=== PATIENT | male | born 1955 | race Caucasian/White ===

== ENCOUNTER 2017-09-26 15:52 | Observation (INO) | payer SELFPAY ==
--- NOTE | 2017-09-26 16:13 | EDPHY ---
H & P Stated Complaint: MRI/sent from M.D,. Time Seen by Provider: 09/26/17 16:11 - Personal History Current Tetanus/Diphtheria Vaccine: Yes - Medical/Surgical History Hx Asthma: No Hx Chronic Respiratory Disease: No Hx Diabetes: No Hx Cardiac Disease: No Hx Renal Disease: Yes Hx Cirrhosis: No Hx Alcoholism: No Other PMH: stasis ulcers bilat Lower ext, htn - Social History Smoking Status: Never smoked Constitutional: Initial Vital Signs Temperature (C) 36.9 C 09/26/17 16:05 Heart Rate 65 09/26/17 16:05 Respiratory Rate 16 09/26/17 16:05 Blood Pressure 119/82 H 09/26/17 16:05 O2 Sat (%) 94 09/26/17 16:05 O2 Delivery Mode Room Air Allergies/Adverse Reactions: NSAIDS (Non-Steroidal Anti-Inflamma Allergy (Mild, Verified 09/26/17 20:30) Other-Enter Comments Home Medications: Medication Instructions Recorded Lisinopril [Zestril 20 mg (*)] 20 mg PO DAILY 09/26/17 Metoprolol Tartrate [Lopressor 25 25 mg PO BID 09/26/17 mg (*)] amLODIPine BESYLATE [Norvasc 10 mg 10 mg PO DAILY 09/26/17 (*)] Medical Decision Making - Diagnostics Imaging Results: Imaging Impressions Abdomen/Pelvis CT 09/26/17 17:14 Impression: 1. Xysslara-[id number]-[id number] volume ascites with apparent omental caking. 2. Hepatic cirrhosis with a nonspecific 13 x 15 mm hypodense lesion along the ventral upper left hepatic lobe. 3. There is a 15 x 17 mm exophytic hypodense lesion off the upper pole of the right kidney. 4. Cardiomegaly with mitral annular calcification. 5. Small hiatal hernia. 6. Mild prostatomegaly, with some nonspecific scattered punctate osteosclerotic foci in the pelvis and proximal femora. Correlation with serum PSA value is suggested. 7. There is no evidence of nephroureterolithiasis or obstructive uropathy. Findings were discussed with Samy Polo MD at 18:23, on 09/26/2017. Imaging: Discussed imaging studies w/ call center nurse Radiologist ED Course/Re-evaluation: CHIEF COMPLAINT: Distended abdomen. HISTORY OF PRESENT ILLNESS: This patient is a 62 year old male arriving at the request of his primary care physician, Dr. Mazariegos, for evaluation of a swollen abdomen. The patient states "I woke up one day and I had a grandpa belly". He has noted increased distension and discomfort for over the past three weeks. He initially thought his symptoms were from weight gain due to his diet. He has had decreased appetite over the last three weeks as well, and diarrhea rather than normal bowel movements. He endorses severe cramps on occasion. The patient has history of bowel surgery as a child, but no other abdominal surgeries. He is unsure whether he is s/p appendectomy. He endorses a long history of heavy alcohol use. He denies fever, chest pain, shortness of breath, or other associated symptoms. REVIEW OF SYSTEMS: A 10 point review of systems was performed and is negative with the exception of the elements mentioned in the history of present illness. PHYSICAL EXAM: HR, BP, O2 Sat, RR. Temp noted General Appearance: Alert, well hydrated, appropriate, and non-toxic appearing. Head: Atraumatic without scalp tenderness or obvious injury Eyes: Pupils equal, round, reactive to light and accommodation, EOMI, no trauma , no injection. Ears: Clear bilaterally, no perforation, normal landmarks Nose: Atraumatic, no rhinorrhea, clear. Throat: There is no erythema or exudates, no lesions, normal tonsils, mucus membranes moist. Neck: Supple, 2+ carotid upstroke, nontender, no lymphadenopathy. Respiratory: No retractions, no distress, no wheezes, and no accessory muscle use. Lungs are clear to auscultation bilaterally. Cardiovascular: Regular rate and rhythm, no murmurs, rubs, or gallops. Bilateral carotid, radial, dorsalis pedis, and posterior tibial pulses intact. Good capillary refill all extremities. Gastrointestinal: Abdomen is significantly distended. Fluid wave present. Musculoskeletal: Normal active ROM of all extremities, atraumatic. Neurological: Alert, appropriate, and interactive. The patient has normal DTRs and non-focal cranial nerves, motor, sensory, and cerebellar exam. Skin: No rashes, good turgor, no nodules on palpation. Past medical history: Stasis ulcers in bilateral lower extremities, hypertension Past surgical history: Remote history of bowel surgery Family history: Noncontributory Social history: Works in the restaurant industry. Lives in [place]. Heavy alcohol use. DIFFERENTIAL DIAGNOSIS: The differential diagnosis for the patient's abdominal pain included but was not limited to cirrhosis, ascites, appendicitis, cholecystitis, hernias, testicular torsion, gastritis, and urinary tract infection. MEDICAL DECISION MAKIN62 year old male presents with abdominal swelling and pain onset three weeks ago. Abdomen is significantly distended on exam, fluid wave present. Plan for labs including I-stat, CBC, chemistries, liver, lipase, UA. Plan for CT abdomen/ pelvis. Reviewed laboratory studies. Creatinine elevated at 2.5. UA positive for bilirubin, proteins. 18:[address] Hughes, radiologist. CT shows ascites, peritoneal caking worrisome for malignancy, evidence of cirrhosis. Plan for admission for possible paracentesis and further workup including cytology. 18:[address] Hinkle, hospitalist. He accepts admission for ascites, cirrhosis. - Data Points Laboratory Results: Laboratory Results 09/26/17 16:20 09/26/17 16:20 09/26/17 09/26/17 09/26/17 16:30 16:27 16:20 WBC RBC Hgb POC Hgb 15.6 gm/dL gm/dL (13.7-17.5) Hct POC Hct 46 % % (40-51) MCV MCH MCHC RDW Plt Count MPV Neut % (Auto) Lymph % (Auto) [place] % (Auto) Eos % (Auto) Baso % (Auto) Nucleat RBC Rel Count Absolute Neuts (auto) Absolute Lymphs (auto) Absolute Monos (auto) Absolute Eos (auto) Absolute Basos (auto) Absolute Nucleated RBC Immature Gran % Immature Gran # PT INR APTT POC Sodium 140 mEq/L mEq/L (135-145) Sodium POC Potassium 4.2 mEq/L mEq/L (3.3-5.0) Potassium POC Chloride 109 mEq/L mEq/L (97-110) Chloride Carbon Dioxide Anion Gap POC BUN 33 mg/dL H mg/dL (7-23) BUN Creatinine POC Creatinine 2.7 mg/dL H mg/dL (0.7-1.3) Estimated GFR Glucose POC Glucose 96 mg/dL mg/dL (70-100) Calcium Total Bilirubin Conjugated Bilirubin Unconjugated Bilirubin AST ALT Alkaline Phosphatase Total Protein Albumin Lipase Carcinoembryonic Ag Free PSA Pending Total PSA Pending Urine Color HUSSAIN Urine Appearance MODERATELY TURBID Urine pH 5.0 (5.0-7.5) Ur Specific [place] 1.023 (1.002-1.030) Urine Protein 1+ H (NEGATIVE) Urine Ketones NEGATIVE (NEGATIVE) Urine Blood 1+ H (NEGATIVE) Urine Nitrate NEGATIVE (NEGATIVE) Urine Bilirubin POSITIVE H (NEGATIVE) Urine Urobilinogen 2.0 EU H EU (0.2-1.0) Ur Leukocyte Esterase NEGATIVE (NEGATIVE) Urine RBC 15-25 /hpf H /hpf (0-3) Urine WBC 3-5 /hpf H /hpf (0-3) Ur Epithelial Cells TRACE /lpf /lpf (NONE-1+) Hyaline Casts 5-15 /lpf /lpf (0-1) Urine Mucus 2+ /lpf H /lpf (NONE-1+) Urine Glucose NEGATIVE (NEGATIVE) 09/26/17 09/26/17 09/26/17 16:20 16:20 16:20 WBC RBC Hgb POC Hgb Hct POC Hct MCV MCH MCHC RDW Plt Count MPV Neut % (Auto) Lymph % (Auto) [place] % (Auto) Eos % (Auto) Baso % (Auto) Nucleat RBC Rel Count Absolute Neuts (auto) Absolute Lymphs (auto) Absolute Monos (auto) Absolute Eos (auto) Absolute Basos (auto) Absolute Nucleated RBC Immature Gran % Immature Gran # PT 14.2 SEC SEC (12.0-15.0) INR 1.08 (0.83-1.16) APTT 27.9 SEC SEC (23.0-38.0) POC Sodium Sodium 138 mEq/L mEq/L (135-145) POC Potassium Potassium 4.5 mEq/L mEq/L (3.3-5.0) POC Chloride Chloride 107 mEq/L mEq/L (97-110) Carbon Dioxide 17 mEq/l L mEq/l (22-31) Anion Gap 14 mEq/L mEq/L (8-16) POC BUN BUN 31 mg/dL H mg/dL (7-23) Creatinine 2.5 mg/dL H mg/dL (0.7-1.3) POC Creatinine Estimated GFR 26 Glucose 90 mg/dL mg/dL (70-100) POC Glucose Calcium 9.7 mg/dL mg/dL (8.5-10.4) Total Bilirubin 0.6 mg/dL mg/dL (0.1-1.4) Conjugated Bilirubin 0.4 mg/dL mg/dL (0.0-0.5) Unconjugated Bilirubin 0.2 mg/dL mg/dL (0.0-1.1) AST 14 IU/L L IU/L (17-59) ALT 29 IU/L IU/L (21-72) Alkaline Phosphatase 54 IU/L IU/L (38-126) Total Protein 6.1 g/dL L g/dL (6.3-8.2) Albumin 3.5 g/dL g/dL (3.5-5.0) Lipase 594 IU/L H IU/L (23-300) Carcinoembryonic Ag 188.00 ng/mL H ng/mL (0.00-3.00) Free PSA Total PSA Urine Color Urine Appearance Urine pH Ur Specific [place] Urine Protein Urine Ketones Urine Blood Urine Nitrate Urine Bilirubin Urine Urobilinogen Ur Leukocyte Esterase Urine RBC Urine WBC Ur Epithelial Cells Hyaline Casts Urine Mucus Urine Glucose 09/26/17 16:20 WBC 7.75 10^3/uL 10^3/uL (3.80-9.50) RBC 4.64 10^6/uL 10^6/uL (4.40-6.38) Hgb 14.6 g/dL g/dL (13.7-17.5) POC Hgb Hct 44.3 % % (40.0-51.0) POC Hct MCV 95.5 fL fL (81.5-99.8) MCH 31.5 pg pg (27.9-34.1) MCHC 33.0 g/dL g/dL (32.4-36.7) RDW 12.9 % % (11.5-15.2) Plt Count 339 10^3/uL 10^3/uL (150-400) MPV 10.7 fL fL (8.7-11.7) Neut % (Auto) 76.5 % H % (39.3-74.2) Lymph % (Auto) 10.5 % L % (15.0-45.0) [place] % (Auto) 11.7 % % (4.5-13.0) Eos % (Auto) 0.5 % L % (0.6-7.6) Baso % (Auto) 0.5 % % (0.3-1.7) Nucleat RBC Rel Count 0.0 % % (0.0-0.2) Absolute Neuts (auto) 5.93 10^3/uL 10^3/uL (1.70-6.50) Absolute Lymphs (auto) 0.81 10^3/uL L 10^3/uL (1.00-3.00) Absolute Monos (auto) 0.91 10^3/uL H 10^3/uL (0.30-0.80) Absolute Eos (auto) 0.04 10^3/uL 10^3/uL (0.03-0.40) Absolute Basos (auto) 0.04 10^3/uL 10^3/uL (0.02-0.10) Absolute Nucleated RBC 0.00 10^3/uL 10^3/uL (0-0.01) Immature Gran % 0.3 % % (0.0-1.1) Immature Gran # 0.02 10^3/uL 10^3/uL (0.00-0.10) PT INR APTT POC Sodium Sodium POC Potassium Potassium POC Chloride Chloride Carbon Dioxide Anion Gap POC BUN BUN Creatinine POC Creatinine Estimated GFR Glucose POC Glucose Calcium Total Bilirubin Conjugated Bilirubin Unconjugated Bilirubin AST ALT Alkaline Phosphatase Total Protein Albumin Lipase Carcinoembryonic Ag Free PSA Total PSA Urine Color Urine Appearance Urine pH Ur Specific [place] Urine Protein Urine Ketones Urine Blood Urine Nitrate Urine Bilirubin Urine Urobilinogen Ur Leukocyte Esterase Urine RBC Urine WBC Ur Epithelial Cells Hyaline Casts Urine Mucus Urine Glucose Medications Given: Discontinued Medications Sodium Chloride (Ns) 1,000 mls @ 0 mls/hr IV EDNOW ONE; Wide Open PRN Reason: Protocol Stop: 09/26/17 16:23 Last Admin: 09/26/17 18:55 Dose: Not Given Point of Care Test Results: Chemistry 09/26/17 16:27 POC Sodium 140 mEq/L mEq/L (135-145) POC Potassium 4.2 mEq/L mEq/L (3.3-5.0) POC Chloride 109 mEq/L mEq/L (97-110) POC BUN 33 mg/dL H mg/dL (7-23) POC Creatinine 2.7 mg/dL H mg/dL (0.7-1.3) POC Glucose 96 mg/dL mg/dL (70-100) ISTAT H&H 09/26/17 16:27 POC Hgb 15.6 gm/dL gm/dL (13.7-17.5) POC Hct 46 % % (40-51) Departure - Departure Disposition: [facility] Inpatient Acute Clinical Impression: Ascites Qualifiers: Ascites type: other type Qualified Code(s): R18.8 - Other ascites Cirrhosis Qualifiers: Hepatic cirrhosis type: unspecified hepatic cirrhosis Ascites presence: with ascites Qualified Code(s): K74.60 - Unspecified cirrhosis of liver Condition: Good
[2017-09-26] MEDS ORDERED: NS 1,000 ML IV ONE (16:22)
[2017-09-26 16:47] LABS: INR 1.08 (0.83-1.16); PROTIME(PATIENT) 14.2 SEC (12.0-15.0)
[2017-09-26 16:48] LABS: PLATELET COUNT 339 10^3/uL (150-400)
[2017-09-26] MEDS ORDERED: PROMETHAZINE HCL 25 MG/ML INJ IVP PRN (19:31)
[2017-09-26] MEDS ORDERED: ONDANSETRON 4 MG/2 ML VIAL IVP PRN (19:31)
--- NOTE | 2017-09-26 20:08 | GHP ---
[f rep st] HISTORY AND PHYSICAL DATE OF ADMISSION: 09/26/2017 CHIEF COMPLAINT: Abdominal swelling and cramps. HISTORY OF PRESENT ILLNESS: This is a 62-year-old male with history of hypertension and lower extrem ity stasis ulcers who was sent to the emergency department by his primary care provider, __ at [place] for evaluation of abdominal swelling. Patient tells that over the past 3 weeks he peres d increasing crampy abdominal pain and swelling. It has been associated with some weight loss. His appetite has been decreased. He has had some nausea but no vomiting. He denies any change in bowel habits. He has never had a colonoscopy. He does have a history of some alcohol abuse where he had b een drinking 5 or more shots whiskey per day for a couple years, but has not been drinking as much ov er the past year. PAST MEDICAL HISTORY: Hypertension and stasis ulcers. PAST SURGICAL HISTORY: Laparotomy as a child for some kind of bowel infection. SOCIAL HISTORY: He lives in [place]. He drinks alcohol occasionally now, but does have a history of alcohol abuse a few years ago. He denies any tobacco use. He uses marijuana. FAMILY HISTORY: Reviewed and significant for diabetes in his brother. REVIEW OF SYSTEMS: Comprehensive 10-point review of systems was done and is negative, except as ment ioned in the HPI. PHYSICAL EXAM: VITAL SIGNS: Blood pressure 134/91, pulse 63, respiratory rate 16, O2 saturation 97% on room air. Temperature afebrile. GENERAL: No acute distress. HEAD: Normocephalic, atraumatic. There is some temporal wasting. EYES: PERRLA. Sclerae anicteric. NECK: Supple. No lymphadenopathy. CARDIOVASCULAR: S1, S2. No murmurs, rubs, clicks, or gallops. No JVD. No lower extremity edema. PULMONARY: Mild expiratory wheeze. No respiratory distress. No rales or rhonchi. Abdomen is signi ficantly distended with bulging flanks. It is nontender. There is no guarding or rebound tenderness . Bowel sounds are diminished. SKIN: Clear. No rashes. No jaundice. NEURO: Cranial nerves 2-12 grossly intact. No focal motor or sensory deficits. DIAGNOSTICS: WBC 7.7, hemoglobin 14.6, hematocrit 44.3, platelets 339. INR 1.08. Sodium 138, potass ium 4.5, chloride 107, CO2 17, BUN 31, creatinin 2.5, glucose 90. AST 14, ALT 29, total protein low at 6.1, albumin 3.5, lipase 594. UA negative leukocyte esterase, 1+ protein, 1+ blood, 5-[address] of the abdomen and pelvis was reviewed showing hsonxwxl-[id number]-[id number] volume ascites with apparent omen selena caking, hepatic cirrhosis, a 13 x 15 mm hypodense lesion in the left upper lobe. There is also a 14 x 17 exophytic hyperdense lesion in the upper pole of the right kidney. See report for full deta ils. ASSESSMENT AND PLAN: This is a 62-year-old male presenting with crampy abdominal pain, anorexia and weight loss, found to have: 1. Dkcfdush-bo-uhvnx volume of ascites of unclear etiology. Worrisome for malignancy given the omen selena caking. PLAN: The patient will be placed on observation for further workup and evaluation. We will ask interventional Radiology to perform a paracentesis. Fluid should be sent for cell counts an d cytology. We will also order a PSA, alpha fetoprotein, CEA. 2. Elevated creatinine with unclear baseline with CT scan showing 15 x 17 mm exophytic hyperdense le linda in the upper pole of right kidney. PLAN: We will avoid nephrotoxins and obtain urine lytes. I maging to be discussed with Interventional Radiology and possibly Oncology to see if the lesion would be amenable to biopsy or to see if this would be worthwhile. 3. History of hypertension. PLAN: Will hold home dose of lisinopril and treat with metoprolol and amlodipine as indicated. 4. The patient requests to be full code status. /[id number]/MODL
[2017-09-27 05:18] LABS: PLATELET COUNT 283 10^3/uL (150-400)
[2017-09-27] MEDS ORDERED: LIDOCAINE 1% 300 MG/30 ML SDV ONE (07:47)
[2017-09-27] MEDS ORDERED: ENOXAPARIN 40 MG/0.4 ML SYR SC SCH (09:00)
[2017-09-27] MEDS ORDERED: ALBUMIN 25% 200 ML IV ONE (10:59)
--- NOTE | 2017-09-27 12:00 | ASMTCAGE ---
CAGE Do you feel you ought to Answers: Yes cut down on your drinking or drug use? Do people annoy you by Answers: No criticizing your drinking or drug use? Do you feel guilty about Answers: No your drinking or drug use? 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 Date Signed: 09/27/2017 11:59 AM Electronically Signed By:VALENTE Sebastian
--- NOTE | 2017-09-27 12:03 | ASMTCASEMG ---
Living Arrangements What is your living Answers: Alone arrangement? Who do you live with? Type Of Residence What kind of residence do Answers: House you live in? Discharge Plan Comments Coordination Status Comments Notes: Pt is a 62 y/o man admitted for abdominal swelling and cramps. CM provided ETOH resources. CM completed CAGE. Pt reports that he has cut down significantly on his ETOH because it started effecting his daily mood. Pt reports that he has supports in his life. Pt reports that he is currently uninsured. Pt reports that he makes too much money for Medicaid. Pt reports that financial counseling has already been by to visit. Pt feels that he can ambulate safely without any support. No other needs identified at this time. CM available for changes. Plan: Independent Date Signed: 09/27/2017 12:03 PM Electronically Signed By:VALENTE Sebastian
--- NOTE | 2017-09-27 12:33 | HOSPPROG ---
Hospitalist Progress Note Assessment/Plan: DIAGNOSES: * painful abdominal ascites, etiology being assessed but suspect malignant and/ or portal hypertension induced * The volume of his ascites is likely more consistent with at least some contribution from portal hypertension from cirrhosis but CT scan findings are concerning (though without contrast more difficult to interpret). * cirrhosis of liver, presumably due to alcohol but other etiologies need to be assessed * Should be assessed for viral illness * acute renal failure presumably hemodynamic etiology * Some notable improvement overnight with conservative management * Continue at this time with hydration which will may be somewhat limited by his ascites, as well as withholding SALOME I * metabolic acidosis likely secondary to renal failure * findings on CT scan suggestive of possible metastatic disease with "omental caking", hypodensity in the right lobe of liver, and exophytic solid lesion on the right kidney; CEA markedly elevated * The overall picture is concerning but unclear. The liver lesion is a nonspecific single hypodense lesion without any complex findings. The renal lesion is poorly defined without contrast but is solid without cystic component. The omental caking type abnormality is somewhat difficult as well without contrast. * metastatic prostate cancer also suspected with enlargement of the gland and some sclerotic skeletal lesions in the pelvis and spine on CT A PSA should be very helpful to confirm what is likely prostatic cancer if it is highly elevated. However the other findings would not be consistent with metastatic prostate disease very likely. At this point fluid is removed from his belly and will need to see if there are any abnormal cytology findings there. At the moment I would favor waiting for cytology which hopefully would have this Monday, and try to improve his renal function to see if we can get a contrasted CT for better definition of the abnormalities. The normal AFP and the appearance of the lesion in the right lobe of the liver are not very consistent with hepatoma. The renal lesion is hard to interpret based on the current imaging but is suspicious. The a mental caking also would be potentially easier to interpret with contrast imaging. In terms of biopsy the lesion on the kidney looks to me like we could get to it easily enough with a needle. The omental disease would need to be approached laparoscopically if biopsy were desired. I will review with on-call oncologist to get their opinion. PLANS: * He has now had a large volume paracentesis with greater than 5 L removed; sent for diagnostic studies * Will give some albumin for vascular volume replacement after that, may need further supplements depending on renal function and pressures * Will check hepatitis B and C markers At this point I recommended to the patient that he continue inpatient care here in the hospital primarily to monitor renal function, blood pressure, reaccumulation of ascites that we can determine safely how to manage that and keep his kidneys out of trouble and keep him comfortable. I have also reviewed all of the above with him in great detail. I reviewed that we should wait for the cytology results to come back, wait for his PSA to come back, and then proceed with obtaining further diagnostic studies. If he has abnormal cells suspicious for malignancy in this cytology of his peritoneal fluid, it may be that a laparoscopic exploration and biopsy of the omental disease or other disease would be very helpful. Otherwise a CT scan-guided biopsy of the kidney might be helpful for the right renal mass. There may be other findings that tell us to go a different way. After all this discussion the patient disclosed to me that he has very significant financial concerns. At age 62 he is currently making too much money for Medicaid and not eligible for Medicare but has not bought any insurance so he is uninsured. He has great concerns about his financial situation. 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 He has other responsibilities and obligations that he feels he needs to attend to. He is not willing at this time to stay in the hospital further and will be leaving regardless of the overall situation at this time. He understands that my recommendation from a medical standpoint is that he not leave the hospital. He understands the reasons for my recommendations. Therefore my recommendation at this time to him is that he stick with a low-salt diet low fluid intake, borrow a scale from his daughter, obtained a blood pressure cuff from 1 of his friends, and keep very careful track of his abdominal distension and symptoms, any leg edema, blood pressures, and weight on a daily basis. I have told them that we when aim for normal to slightly high blood pressures but avoid anything at all low. I have also strongly recommended that he follow up tomorrow in clinic with Dr. Mazariegos his primary care physician. The patient understands and agrees to all the lows recommendations. I have informed him that will not have cytology back until 2 days from now or the following Monday, and the PSA will take a few more days as well. He will need follow-up in reassessment of his overall situation at that time with a repeat of his creatinine to determine whether it allows for any contrasted CT studies as well. I have also spoken did just now by [address] 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 The right renal lesion is easily noted, the findings are less detail them would be found with contrast. The lesion in the right lobe of the liver is a simple appearing cystic lesion. It is a single lesion. The ascites is obvious. The omental disease mentioned by the radiologist is difficult to visualize without contrast. The prostatic and skeletal findings as detailed the radiologist are very easy to see and do suggest possible metastatic prostate disease I reviewed the images from the ultrasound studies for paracentesis today no additional new findings but a very limited study for the procedure The total time at bedside for this visit with me in the patient today was greater than 75 min, the great majority of that spent in reviewing all of his test findings, my interpretation with those findings mean, his differential diagnosis, the prognosis of his acute and his other medical diagnoses, potential for treatments and complications. We also talked about financial concerns a variety of other issues related to managing his medical problems as above. In addition to this time I had a [address] call with Dr[address] Mazariegos to review all of the above in to arrange appropriate follow-up. I will also be reviewing his case today with Dr. Britany Dean of Oncology after this note. Objective: Vital Signs Temp Pulse Resp BP Pulse Ox 37.2 C 67 16 121/66 H 95 09/27/17 11:44 09/27/17 11:44 09/27/17 11:44 09/27/17 11:44 09/27/17 11:44 Laboratory Results 09/27/17 04:55 09/27/17 04:55 09/26/17 09/27/17 09/28/17 06:59 06:59 06:59 Output Total 5400 Balance -5400 PT 14.2 SEC (12.0-15.0) 09/26/17 16:20 INR 1.08 (0.83-1.16) 09/26/17 16:20 ICD10 Worksheet Patient Problems: Problems Problem Status Onset Ascites Acute Cirrhosis Acute
--- NOTE | 2017-09-27 14:35 | PDDCSUM ---
Discharge Summary Discharge Summary: DISCHARGE DIAGNOSES: * new diagnosis of large volume ascites, suspect malignant but patient does have ascites as well; status post large volume paracentesis * acute renal failure, suspect hemodynamic etiology * CT-scan suggestion of possible metastatic disease to the omentum * small mass on the superior pole of right kidney, solid * small hypodense lesion in the right lobe of the liver appears most likely to be a simple cyst; AFP is undetectable * cirrhosis of the liver is noted on CT scan, patient with history of some alcohol use heavy in the past * enlargement of prostate along with several sclerotic bone lesions in the pelvis spine and femurs is incidentally noted on CT scan abdomen * chronic hypertension PROCEDURES: CT scan of abdomen, done without contrast due to acute renal failure HOSPITAL COURSE SUMMARY: This patient was sent to the hospital by his primary care physician after presenting with painful abdominal distension that has been gradually coming on over period of weeks. He is found have large volume ascites, acute renal failure with creatinine 2.5, with suspected pre renal hemodynamic etiology, as well as CT scan findings of suspected omental metastatic disease, small mass on the superior pole right kidney, enlarged prostate, sclerotic lesions in the lumbar spine, pelvic bones, and femurs, and evidence of cirrhosis by CT scan appearance of the liver. Liver function in the way of albumin was okay and his bilirubin was in good range. Patient does have a history of heavy alcohol use. The patient's lisinopril was discontinued and overnight his creatinine improved to 2.0. He is making good urine. A large volume paracentesis was done yelling 5.4 L of yellow fluid, with low number of neutrophils, a lymphocyte predominance , and a low albumin gradient. This is a largely transudative fluid with some red blood cells in it. Suspicion for malignancy is high particularly in the absence of leg edema a and absence of demonstrated hepatic dysfunction per se. Cytology studies are pending. Differential diagnosis for the cause of the ascites is broad. It is possible that there is some type of malignancy such as a breast or otherwise. There could be some type of immune disease though has no fevers or anemia of significance and really no symptoms are examination findings to suggest such. Within normal alpha-fetoprotein and a single small hypodense could a simple appearing lesion in the liver, this does not seem like a hepatoma. There is a mass on the superior pole the right kidney, however this is small, not complex in appearance, and at the moment there isn't much else to cysts suggest metastatic disease from this lesion. At the moment it seems appropriate to wait for cytology studies of the abdominal fluid and make decisions on how to proceed next from there. In terms of management of his ascites and renal disease it is recommended that we go with a low fluid and salt intake, with hold his lisinopril, and depending on how his blood pressures and renal function go consider diuretics. However it may be that controlling the ascites will come down to identifying its cause and treating the cause directly. The patient did receive some albumin here to help with intravascular volume. Is recommended to the patient at this time that he stay in the hospital for ongoing management of the renal function and ascites at this time until we have both stabilized, however due to financial and other reasons he is unwilling to stay in the hospital. I have therefore spoken with his primary care physician in [place] for the patient have follow-up with him the primary care tomorrow and probably the following day as well. It may be a good idea for him to be seen in the Oncology Clinic next week when the PSA and cytologies will be back with certainty. Is very clear to the patient why it is recommended that he stay here with the potential complications of not having this managed here are. The patient has had all of the above described to him in clear detail and all of his questions answered. PENDING TEST RESULTS: Cytology studies from paracentesis PSA MEDICATION CHANGES: Discontinuation of lisinopril FOLLOW-UP PLAN: He will see Dr. Mazariegos tomorrow > 35 min spent at bedside today with patient
[2017-09-27 16:21] VITALS: BP 141/86
[2017-09-27] MEDS ORDERED: METOPROLOL TARTRATE 25 MG TAB PO SCH (21:00)
== END 2017-09-27 15:07 | disposition home or self-care (01) ==
LOC: F3E 19:46
PROVIDERS: ADMIT Family Medicine; ATTEND Family Medicine
PROC: 0W9F30Z Drainage of Abdominal Wall with Drainage Device, Percutaneous Approach (ICD-10-PCS; principal; 2017-09-26)
DX: R18.0 Malignant ascites (principal); N17.9 Acute kidney failure, unspecified; D41.01 Neoplasm of uncertain behavior of right kidney; K74.60 Unspecified cirrhosis of liver; N40.0 Benign prostatic hyperplasia without lower urinary tract symptoms; I10 Essential (primary) hypertension
CPT/HCPCS: 82435-PO; 82565-PO; 82947-PO; 84132-PO; 84154-90; 84295-PO; 84520-PO; 85014-PO; 97161-GP; 97165-GO; G0378; J1650; P9047

== ENCOUNTER 2017-11-03 07:17 | Day surgery (SDC) | payer MEDICAID ==
[~2017-11-03 07:17] MED LIST: oxyCODONE IR 5 MG TAB PO SCH
[2017-11-03] MEDS ORDERED: EPINEPHrine 1 MG/ML INJ ONE (07:39)
[2017-11-03] MEDS ORDERED: NS 500 ML IV ONE (07:39)
[2017-11-03] MEDS ORDERED: ceFAZolin 2 GM/DEXTROSE 100 ML IV ONE (07:39)
[2017-11-03] MEDS ORDERED: BUPIVACAINE 0.25% 30 ML SDV ONE (07:39)
--- NOTE | 2017-11-03 07:51 | PDHPUP ---
History & Physical Update H&P update statement: This history and physical update is based on an assessment of the patient which was completed after admission or registration (within 24 hours), but prior to the surgery/procedure. H&P update: H&P reviewed & patient examined, no change in patient's condition since H&P completed
[2017-11-03] MEDS ORDERED: MIDAZOLAM 2 MG/2 ML VIAL IVP ONE (08:03)
--- NOTE | 2017-11-03 08:03 | PDANEPAE ---
ANE History of Present Illness h/o colorectal cancer p/f port placement ANE Past Medical History - Cardiovascular History Hx Hypertension: Yes Hx Arrhythmias: No Hx Chest Pain: No Hx Coronary Artery / Peripheral Vascular Disease: No Hx CHF / Valvular Disease: No Hx Palpitations: No - Pulmonary History Hx COPD: No Hx Asthma/Reactive Airway Disease: No Hx Recent Upper Respiratory Infection: No Hx Oxygen in Use at Home: No Hx Sleep Apnea: No Sleep Apnea Screening Result - Last Documented: Positive - Neurologic History Hx Cerebrovascular Accident: No Hx Seizures: No Hx Dementia: No - Endocrine History Hx Diabetes: No Obesity: no - Renal History Hx Renal Disorders: Yes Renal History Comment: KIDNEY DISEASE - FROM TAKING NSAIDS FOR PAIN - Liver History Hx Hepatic Disorders: Yes Hepatic History Comment: MILD CIRRHOSIS - Neurological & Psychiatric Hx Hx Neurological and Psychiatric Disorders: No - Cancer History Hx Cancer: Yes Cancer History Comment: METASTATIC COLON CA - Congenital Disorder History Hx Congenital Disorders: No - GI History Hx Gastrointestinal Disorders: No - Other Health History Other Health History: NEG - Chronic Pain History Chronic Pain: No - Surgical History Prior Surgeries: ABD SURGERY CHILD. COLLARBONE ORIF. LEG ULCERS. COLONOSCOPY ANE Review of Systems Review of systems is: negative Review of Systems: - Exercise capacity METS (RN): 4 METS ANE Patient History - Allergies Allergies/Adverse Reactions: NSAIDS (Non-Steroidal Anti-Inflamma Allergy (Mild, Verified 09/26/17 20:30) Other-Enter Comments - Home Medications Home medications: home medication list seen and reviewed Home Medications: Metoprolol Tartrate [Lopressor 25 mg (*)] 25 mg PO BID 09/26/17 [Last Taken X2 DOSES] amLODIPine BESYLATE [Norvasc 10 mg (*)] 10 mg PO DAILY 09/26/17 [Last Taken ] - Anes Hx Anes Hx: no prior problems - Smoking Hx Smoking Status: Never smoked - Family Anes Hx Family Hx Anesthesia Complications: NEG ANE Labs/Vital Signs - Vital Signs Height: 177.8 cm Weight: 88.451 kg ANE Physical Exam - Airway Neck exam: FROM Mallampati Score: Class 2 Mouth exam: poor dentition - Pulmonary Pulmonary: no respiratory distress - Cardiovascular Cardiovascular: regular rate and rhythym - ASA Status ASA Status: III ANE Anesthesia Plan Anesthesia Plan: GA with mask
[2017-11-03] MEDS ORDERED: fentaNYL 100 MCG/2 ML INJ ONE (08:08)
[2017-11-03] MEDS ORDERED: PROPOFOL 200 MG/20 ML VIAL ONE ×2 (08:09)
[2017-11-03] MEDS ORDERED: MIDAZOLAM 2 MG/2 ML VIAL ONE (08:11)
[2017-11-03] MEDS ORDERED: LIDOCAINE 2% 2 ML INJ ONE ×2 (08:13)
[2017-11-03] MEDS ORDERED: ONDANSETRON 4 MG/2 ML VIAL IVP PRN (08:50)
[2017-11-03] MEDS ORDERED: ACETAMINOPHEN 500 MG TAB PO PRN (08:50)
[2017-11-03] MEDS ORDERED: NS 500 ML IV PRN (08:50)
[2017-11-03] MEDS ORDERED: NALOXONE HCL 0.4 MG/ML INJ IVP PRN (08:50)
[2017-11-03] MEDS ORDERED: HYDROmorphONE/DILAUDID 1 MG/ML INJ IVP PRN (08:50)
[2017-11-03] MEDS ORDERED: ALBUTEROL 3 ML DEYVIAL IH PRN (08:50)
[2017-11-03] MEDS ORDERED: oxyCODONE IR 5 MG TAB PO PRN (08:50)
[2017-11-03] MEDS ORDERED: HYDROCODONE/APAP 5/325 TAB PO PRN (08:50)
[2017-11-03] MEDS ORDERED: fentaNYL 100 MCG/2 ML INJ IVP PRN (08:50)
--- NOTE | 2017-11-03 08:50 | POSTANESTH ---
Post Anesthetic Evaluation Cardiovascular Status: Normal, Stable Respiratory Status: Normal, Stable Level of Consciousness/Mental Status: Can Participate in Eval Pain Control: Adequate, Prn Tx Ordered Nausea/Vomiting Control: Adequate, Prn Tx Ordered Complications Possibly Related to Anesthesia: None Noted
--- NOTE | 2017-11-03 09:11 | POSTOPPROG ---
Post Op Note Date of Operation: 11/03/17 Surgeon: Ramses Langston Anesthesiologist: Demetria Anesthesia: IV Sedation Pre-op Diagnosis: Colon cancer Post-op Diagnosis: same Procedure: Us guided R IJ port placemet with intra-op fluoro Findings: Cath tip at AC jxn Inf/Abcess present in the surg proc area at time of surgery?: No EBL: Minimal
--- NOTE | 2017-11-03 09:53 | GOP ---
[f rep st] OPERATIVE REPORT DATE OF OPERATION: 11/03/2017 SURGEON: Ramses Langston MD INTENSIVE CARE UNIT REGISTERED NURSE: None. ANESTHESIA: Local with MAC. ANESTHESIOLOGIST: Dr. Augustin. PREOPERATIVE DIAGNOSIS: Metastatic colon cancer. POSTOPERATIVE DIAGNOSIS: Metastatic colon cancer. PROCEDURE PERFORMED: Ultrasound-guided right internal jugular PowerPort placement with intraoperativ e fluoroscopy. FINDINGS: Successful cannulation and placement of slim power port with tip at the atrial caval junct ion. SPECIMENS: None. ESTIMATED BLOOD LOSS: 5 cc. DESCRIPTION OF PROCEDURE: The patient was greeted in the preoperative suite. Once again, risks, gisell efits, and alternatives were discussed. Consent was signed. He was then brought back to the operati ve suite, placed on the OR table in supine position. After all anesthesia machines including SCDs we re on and functioning, [employer] time-out was performed. After successful sedation, the patient's right neck was prepped and draped in typical sterile fashion. Using the sterile ultras ound, I successfully identified the internal jugular vein and cannulated it with a single stick. I t hen threaded my guidewire over which my peel-away sheath was successfully placed under fluoro. Once this was done, I created a pocket approximately 2 finger breaths below the patient's clavicle on the right side. I made a pocket inferiorly and successfully tunneled the catheter from the pocket to the stick site and successfully fed it into the peel-away sheath. Using fluoroscopy I successfully size d it with the tip at the atrial caval junction. The catheter itself was then attached to the port pr oper. The port was attached to the underlying chest wall with an interrupted Prolene stitch. The gillespie bcutaneous tissue was closed with interrupted 3-0 Vicryl and the skin with Monocryl. Dermabond was t hen placed. The patient was then gently awoken and taken to the PACU in satisfactory condition. I d id use 0.25% Marcaine with epinephrine throughout the procedure to create a field block in all operat octavio areas. DRAINS: None. COUNTS: All counts were reported as correct x2. /[id number]/MODL
[2017-11-03 11:28] VITALS: BP 114/68
== END 2017-11-03 11:27 | disposition home or self-care (01) ==
LOC: FSGY 07:17
PROVIDERS: ATTEND Surgery
PROC: 02HV33Z Insertion of Infusion Device into Superior Vena Cava, Percutaneous Approach (ICD-10-PCS; principal; 2017-11-03 08:30)
PROC: 0JH60XZ Insertion of Tunneled Vascular Access Device into Chest Subcutaneous Tissue and Fascia, Open Approach (ICD-10-PCS; principal; 2017-11-03 08:30)
DX: C19 Malignant neoplasm of rectosigmoid junction (principal); I10 Essential (primary) hypertension
CPT/HCPCS: C1788; J0171; J0690; J1642; J2250; J2704; J3010

== ENCOUNTER 2017-12-16 12:50 | Inpatient (IN) | payer MEDICAID ==
--- NOTE | 2017-12-16 13:41 | EDPHY ---
H & P Stated Complaint: abdominal pain/N/D dehydration for a few days Time Seen by Provider: 12/16/17 13:41 - Medical/Surgical History Hx Asthma: No Hx Chronic Respiratory Disease: No Hx Diabetes: No Hx Cardiac Disease: Yes Hx Renal Disease: Yes Hx Cirrhosis: No Hx Alcoholism: No Hx HIV/AIDS: No Hx Splenectomy or Spleen Trauma: No Other PMH: stasis ulcers bilat Lower ext, htn, colon CA - Social History Smoking Status: Never smoked Constitutional: Initial Vital Signs Temperature (C) 36.7 C 12/16/17 12:58 Heart Rate 77 12/16/17 12:58 Respiratory Rate 18 12/16/17 12:58 Blood Pressure 140/86 H 12/16/17 12:58 O2 Sat (%) 97 12/16/17 12:58 O2 Delivery Mode Room Air Allergies/Adverse Reactions: NSAIDS (Non-Steroidal Anti-Inflamma Allergy (Mild, Verified 12/16/17 12:57) Other-Enter Comments Home Medications: Medication Instructions Recorded Metoprolol Tartrate [Lopressor 25 25 mg PO BID 09/26/17 mg (*)] amLODIPine BESYLATE [Norvasc 10 mg 10 mg PO DAILY 09/26/17 (*)] Medical Decision Making - Diagnostics Imaging Results: Imaging Impressions Abdomen/Pelvis CT 12/16/17 14:27 Impression: 1. Moderate omental caking once again identified compatible with metastatic disease. 2. Moderate thickening of mid to distal ileum with hazy infiltration of the associated mesentery. Consider inflammatory or infectious etiology versus less likely ischemic change. 3. Resolved ascites. 4. Small liver cysts suspected. Findings discussed with Dr. Rod Hoang at 15:29 hour, 12/16/2017. ED Course/Re-evaluation: CHIEF COMPLAINT: Abdominal pain, nausea, diarrhea HISTORY OF PRESENT ILLNESS: The patient is a 62 y/o male with a history of metastatic colon cancer complaining of abdominal pain, nausea, diarrhea feeling dehydrated for several days. The patient is followed by Dr. Bridges, oncologist, for the metastatic colon cancer. He receives chemotherapy every 2 weeks and last received it 1.5 weeks ago. He normally feels fine after the chemotherapy, but after receiving his last treatment, he began to have worsening abdominal pain, diarrhea, a decreased appetite, and nausea; he denies vomiting. Due to the diarrhea, he became dehydrated and had a syncopal episode. As his symptoms are not improving , he decided to present to the emergency department today. He denies taking any medications for his symptoms; although he does have an anti-nausea medication at home. No headache, chest pain, shortness of breath, numbness, paresthesias, fevers. REVIEW OF SYSTEMS: A comprehensive 10 system review of systems is otherwise negative aside from elements mentioned in the history of present illness and medical decision making. PHYSICAL EXAM: HR, BP, O2 Sat, RR. Temp noted General Appearance: Alert, well hydrated, appropriate, and non-toxic appearing. Head: Atraumatic without scalp tenderness or obvious injury Eyes: Pupils equal, round, reactive to light and accommodation, EOMI, no trauma , no injection. Ears: Clear bilaterally, no perforation, normal landmarks Nose: Atraumatic, no rhinorrhea, clear. Throat: There is no erythema or exudates, no lesions, normal tonsils, mucus membranes moist. Neck: Supple, nontender, no lymphadenopathy. Respiratory: No retractions, no distress, no wheezes, and no accessory muscle use. Lungs are clear to auscultation bilaterally. Cardiovascular: Regular rate and rhythm, no murmurs, rubs, or gallops. Bilateral carotid, radial, dorsalis pedis, and posterior tibial pulses intact. Good capillary refill all extremities. Gastrointestinal: Diffuse abdominal tenderness with distension. Abdomen is soft , no masses, no rebound, no guarding, no peritoneal signs. Musculoskeletal: Normal active ROM of all extremities, atraumatic. Neurological: Alert, appropriate, and interactive. The patient has normal DTRs and non-focal cranial nerves, motor, sensory, and cerebellar exam. Skin: No rashes, good turgor, no nodules on palpation. Past medical history: Colon cancer (on chemotherapy), stasis ulcers of bilateral lower extremities, hypertension Past surgical history: Denies Family history: Denies Social history: Lives in [place], daughter at bedside, retired DIAGNOSTICS/PROCEDURES/CRITICAL CARE TIME: Abdominopelvic CT: Moderate omental caking once again identified compatible with metastatic disease. Small liver cysts suspected. DIFFERENTIAL DIAGNOSIS: The differential diagnosis for the patient's abdominal pain included but was not limited to colon cancer, dehydration, appendicitis, cholecystitis, hernias, testicular torsion, gastritis, and urinary tract infection. MEDICAL DECISION MAKING: The patient is a 62 y/o male with a history of metastatic colon cancer presenting with abdominal pain, nausea, diarrhea feeling dehydrated for several days. On exam he has diffuse abdominal tenderness with distension. Labs and abdominopelvic CT ordered; 1L IV NS and 1mg IV Dilaudid administered. 1430: Patient has worsening renal function as he bumped his creatinine. 1450: Consulted with hospitalist service, Dr. Arrington accepts admission of this patient for pain management and failure to thrive. Patient's abdominopelvic CT is still pending. 1500: Patient is ready to be sent to the floor; his abdominopelvic CT is still pending at this time. - Data Points Laboratory Results: Laboratory Results 12/16/17 13:44 12/16/17 13:44 12/16/17 12/16/17 12/16/17 13:44 13:44 13:44 WBC RBC Hgb Hct MCV MCH MCHC RDW Plt Count MPV Neut % (Auto) Lymph % (Auto) [place] % (Auto) Eos % (Auto) Baso % (Auto) Nucleat RBC Rel Count Absolute Neuts (auto) Absolute Lymphs (auto) Absolute Monos (auto) Absolute Eos (auto) Absolute Basos (auto) Absolute Nucleated RBC Immature Gran % Immature Gran # PT 14.2 SEC SEC (12.0-15.0) INR 1.08 (0.83-1.16) APTT 25.0 SEC SEC (23.0-38.0) VBG Lactic Acid 1.7 mmol/L mmol/L (0.7-2.1) Sodium 137 mEq/L mEq/L (135-145) Potassium 2.9 mEq/L L mEq/L (3.3-5.0) Chloride 101 mEq/L mEq/L (97-110) Carbon Dioxide 20 mEq/l L mEq/l (22-31) Anion Gap 16 mEq/L mEq/L (8-16) BUN 46 mg/dL H mg/dL (7-23) Creatinine 2.8 mg/dL H mg/dL (0.7-1.3) Estimated GFR 23 Glucose 118 mg/dL H mg/dL (70-100) Calcium 8.7 mg/dL mg/dL (8.5-10.4) Total Bilirubin 0.5 mg/dL mg/dL (0.1-1.4) Conjugated Bilirubin 0.1 mg/dL mg/dL (0.0-0.5) Unconjugated Bilirubin 0.4 mg/dL mg/dL (0.0-1.1) AST 13 IU/L L IU/L (17-59) ALT 22 IU/L IU/L (21-72) Alkaline Phosphatase 53 IU/L IU/L (38-126) Total Protein 6.4 g/dL g/dL (6.3-8.2) Albumin 3.7 g/dL g/dL (3.5-5.0) Lipase 396 IU/L H IU/L (23-300) 12/16/17 13:44 WBC 8.68 10^3/uL 10^3/uL (3.80-9.50) RBC 4.17 10^6/uL L 10^6/uL (4.40-6.38) Hgb 13.1 g/dL L g/dL (13.7-17.5) Hct 37.8 % L % (40.0-51.0) MCV 90.6 fL fL (81.5-99.8) MCH 31.4 pg pg (27.9-34.1) MCHC 34.7 g/dL g/dL (32.4-36.7) RDW 17.9 % H % (11.5-15.2) Plt Count 215 10^3/uL 10^3/uL (150-400) MPV 10.1 fL fL (8.7-11.7) Neut % (Auto) 76.1 % H % (39.3-74.2) Lymph % (Auto) 10.9 % L % (15.0-45.0) [place] % (Auto) 11.8 % % (4.5-13.0) Eos % (Auto) 0.7 % % (0.6-7.6) Baso % (Auto) 0.3 % % (0.3-1.7) Nucleat RBC Rel Count 0.0 % % (0.0-0.2) Absolute Neuts (auto) 6.60 10^3/uL H 10^3/uL (1.70-6.50) Absolute Lymphs (auto) 0.95 10^3/uL L 10^3/uL (1.00-3.00) Absolute Monos (auto) 1.02 10^3/uL H 10^3/uL (0.30-0.80) Absolute Eos (auto) 0.06 10^3/uL 10^3/uL (0.03-0.40) Absolute Basos (auto) 0.03 10^3/uL 10^3/uL (0.02-0.10) Absolute Nucleated RBC 0.00 10^3/uL 10^3/uL (0-0.01) Immature Gran % 0.2 % % (0.0-1.1) Immature Gran # 0.02 10^3/uL 10^3/uL (0.00-0.10) PT INR APTT VBG Lactic Acid Sodium Potassium Chloride Carbon Dioxide Anion Gap BUN Creatinine Estimated GFR Glucose Calcium Total Bilirubin Conjugated Bilirubin Unconjugated Bilirubin AST ALT Alkaline Phosphatase Total Protein Albumin Lipase Medications Given: Discontinued Medications Hydromorphone HCl (Dilaudid) 1 mg IVP EDNOW ONE Stop: 12/16/17 14:25 Last Admin: 12/16/17 14:53 Dose: 1 mg Sodium Chloride (Ns) 1,000 mls @ 0 mls/hr IV EDNOW ONE; Wide Open PRN Reason: Protocol Stop: 12/16/17 13:50 Last Admin: 12/16/17 13:58 Dose: 1,000 mls Departure - Departure Disposition: [facility] Inpatient Acute Clinical Impression: Pain management, Dehydration, Failure to thrive in adult Abdominal pain Qualifiers: Abdominal location: generalized Qualified Code(s): R10.84 - Generalized abdominal pain Colon cancer Qualifiers: Colon location: unspecified part of colon Qualified Code(s): C18.9 - Malignant neoplasm of colon, unspecified Diarrhea Qualifiers: Diarrhea type: unspecified type Qualified Code(s): R19.7 - Diarrhea, unspecified Nausea & vomiting Qualifiers: Vomiting type: unspecified Vomiting Intractability: intractable Qualified Code( s): R11.2 - Nausea with vomiting, unspecified Condition: Fair Referrals: Regino Mazariegos MD [Primary Care Provider] - As per Instructions Report Scribed for: Samy Polo Report Scribed by: Rosa Baeza Date of Report: 12/16/17 Time of Report: 13:49
[2017-12-16] MEDS ORDERED: NS 1,000 ML IV ONE (13:49)
[2017-12-16 14:01] LABS: PLATELET COUNT 215 10^3/uL (150-400)
[2017-12-16 14:09] LABS: INR 1.08 (0.83-1.16); PROTIME(PATIENT) 14.2 SEC (12.0-15.0)
[2017-12-16] MEDS ORDERED: HYDROmorphONE/DILAUDID 2 MG/ML INJ IVP ONE (14:24)
[2017-12-16] MEDS ORDERED: HYDROmorphONE/DILAUDID 1 MG/ML INJ ONE (14:37)
[2017-12-16] MEDS ORDERED: ACETAMINOPHEN 325 MG TAB PO PRN (15:05)
[2017-12-16] MEDS ORDERED: ONDANSETRON 4 MG/2 ML VIAL IVP PRN (15:05)
[2017-12-16] MEDS ORDERED: HYDROmorphONE/DILAUDID 1 MG/ML INJ IVP PRN (15:05)
[2017-12-16] MEDS ORDERED: ONDANSETRON DISINTEGRATING 4 MG TAB PO PRN (15:05)
--- NOTE | 2017-12-16 15:11 | PDGENHP ---
History and Physical - Chief Complaint abdominal pain, diarrhea - History of Present Illness 62yo M with recently diagnosed cirrhosis and metastatic colonic adenocarcinoma with last chemotherapy about 11 days ago presents with several days of worsening upper abdominal pain associated with profuse watery diarrhea. He's had rather persistent abdominal pain and loose stools over the last few months but this picked up significantly after last chemo and has continued to worsen. No nausea/vomiting, fevers, chills, or other localizing symptoms. Denies recent antibiotics. No sick contacts. Of note, he started to notice dizziness and actually passed out while sitting at his dinner table last night. This didn't appear to be positional. No chest pain/palpitations preceded this. His daughter witnessed this but is not at bedside to provide additional info. Per patient, he was out for a minute or two; there was no seizure activity or loss or continence. Has not passed out before. In the ED, labs showed K 2.9 and creatinine 2.8 which was up from 1.3 on last check. A CT scan of his abdomen was obtained with results pending. A decision was made to admit for further evaluation. Case discussed with ED physician Samy Polo. Prior records reviewed, including hospitalization from 09/26-. History Information - Allergies/Home Medication List Allergies/Adverse Reactions: NSAIDS (Non-Steroidal Anti-Inflamma Allergy (Mild, Verified 12/16/17 12:57) Other-Enter Comments Home Medications: Metoprolol Tartrate [Lopressor 25 mg (*)] 25 mg PO BID 09/26/17 [Last Taken 09:00] amLODIPine BESYLATE [Norvasc 10 mg (*)] 10 mg PO DAILY 09/26/17 [Last Taken ] I have personally reviewed and updated: family history, medical history, social history, surgical history - Past Medical History Additional medical history: colonic adenocarcinoma currently on chemotherapy ( followed by Dr Bridges), hepatic cirrhosis, HTN, chronic venous stasis of lower extremities, CKD - Surgical History Additional surgical history: laparotomy as child for unclear reasons - Family History Additional family history: brother: diabetes; no known colonic cancers - Social History Smoking Status: Never smoked Alcohol Use: Occasionally (previous heavy use) Drug Use: Marijuana Additional social history: lives in [place], had to quit working because of fatigue Review of Systems Review of Systems: ROS: 10pt was reviewed & negative except for what was stated in HPI & below Physical Exam Physical Exam: Temp Pulse Resp BP Pulse Ox 36.7 C 68 20 127/96 H 96 12/16/17 12:58 12/16/17 15:00 12/16/17 15:00 12/16/17 15:00 12/16/17 15:00 Constitutional: no apparent distress, appears nourished, not in pain, other ( apepars tired) Eyes: PERRL, anicteric sclera, EOMI Ears, Nose, Mouth, Throat: moist mucous membranes, hearing normal, ears appear normal, no oral mucosal ulcers Cardiovascular: regular rate and rhythym, no murmur, rub, or gallop, No edema Respiratory: no respiratory distress, no rales or rhonchi, clear to auscultation Gastrointestinal: tenderness (mild upper abd tenderness), other (significant upper abdominal fullness appreciated about 6-7cm below costal margin), No ascites, No distension Genitourinary: no bladder fullness, no bladder tenderness Skin: warm, normal color, no rashes or abrasions, no fluctuance, no induration, other (darkened skin on b/l lower extremities c/w venous stasis), No mottled Neurologic: AAOx3, sensation intact bilaterally, CN II-XII Intact, No weakness, No numbness Psychiatric: interacting appropriately, not anxious, not encephalopathic, thought process linear Lab Data & Imaging Review 12/16/17 13:44 12/16/17 13:44 WBC 8.68 10^3/uL (3.80-9.50) 12/16/17 13:44 RBC 4.17 10^6/uL (4.40-6.38) L 12/16/17 13:44 Hgb 13.1 g/dL (13.7-17.5) L 12/16/17 13:44 Hct 37.8 % (40.0-51.0) L 12/16/17 13:44 MCV 90.6 fL (81.5-99.8) 12/16/17 13:44 MCH 31.4 pg (27.9-34.1) 12/16/17 13:44 MCHC 34.7 g/dL (32.4-36.7) 12/16/17 13:44 RDW 17.9 % (11.5-15.2) H 12/16/17 13:44 Plt Count 215 10^3/uL (150-400) 12/16/17 13:44 MPV 10.1 fL (8.7-11.7) 12/16/17 13:44 Neut % (Auto) 76.1 % (39.3-74.2) H 12/16/17 13:44 Lymph % (Auto) 10.9 % (15.0-45.0) L 12/16/17 13:44 [place] % (Auto) 11.8 % (4.5-13.0) 12/16/17 13:44 Eos % (Auto) 0.7 % (0.6-7.6) 12/16/17 13:44 Baso % (Auto) 0.3 % (0.3-1.7) 12/16/17 13:44 Nucleat RBC Rel Count 0.0 % (0.0-0.2) 12/16/17 13:44 Absolute Neuts (auto) 6.60 10^3/uL (1.70-6.50) H 12/16/17 13:44 Absolute Lymphs (auto) 0.95 10^3/uL (1.00-3.00) L 12/16/17 13:44 Absolute Monos (auto) 1.02 10^3/uL (0.30-0.80) H 12/16/17 13:44 Absolute Eos (auto) 0.06 10^3/uL (0.03-0.40) 12/16/17 13:44 Absolute Basos (auto) 0.03 10^3/uL (0.02-0.10) 12/16/17 13:44 Absolute Nucleated RBC 0.00 10^3/uL (0-0.01) 12/16/17 13:44 Immature Gran % 0.2 % (0.0-1.1) 12/16/17 13:44 Immature Gran # 0.02 10^3/uL (0.00-0.10) 12/16/17 13:44 PT 14.2 SEC (12.0-15.0) 12/16/17 13:44 INR 1.08 (0.83-1.16) 12/16/17 13:44 APTT 25.0 SEC (23.0-38.0) 12/16/17 13:44 VBG Lactic Acid 1.7 mmol/L (0.7-2.1) 12/16/17 13:44 Sodium 137 mEq/L (135-145) 12/16/17 13:44 Potassium 2.9 mEq/L (3.3-5.0) L 12/16/17 13:44 Chloride 101 mEq/L (97-110) 12/16/17 13:44 Carbon Dioxide 20 mEq/l (22-31) L 12/16/17 13:44 Anion Gap 16 mEq/L (8-16) 12/16/17 13:44 BUN 46 mg/dL (7-23) H 12/16/17 13:44 Creatinine 2.8 mg/dL (0.7-1.3) H 12/16/17 13:44 Estimated GFR 23 12/16/17 13:44 Glucose 118 mg/dL (70-100) H 12/16/17 13:44 Calcium 8.7 mg/dL (8.5-10.4) 12/16/17 13:44 Total Bilirubin 0.5 mg/dL (0.1-1.4) 12/16/17 13:44 Conjugated Bilirubin 0.1 mg/dL (0.0-0.5) 12/16/17 13:44 Unconjugated Bilirubin 0.4 mg/dL (0.0-1.1) 12/16/17 13:44 AST 13 IU/L (17-59) L 12/16/17 13:44 ALT 22 IU/L (21-72) 12/16/17 13:44 Alkaline Phosphatase 53 IU/L (38-126) 12/16/17 13:44 Total Protein 6.4 g/dL (6.3-8.2) 12/16/17 13:44 Albumin 3.7 g/dL (3.5-5.0) 12/16/17 13:44 Lipase 396 IU/L (23-300) H 12/16/17 13:44 Assessment & Plan Assessment: 62yo M with cirrhosis and recently diagnosed metastatic colonic adenocarcinoma with last chemotherapy about 10 days ago presents with several days of diffuse abdominal pain associated with vomiting, diarrhea, inability to tolerate PO found to be dehydrated with hypokalemia and SAMUEL. Plan: #Diarrhea, abdominal pain: Likely related to chemotherapy and omental caking. Ileum mildly inflamed on imaging. He is not septic. Will provide IV dilaudid, anti-emetics and IVF for supportive care. Check GI PCR. #SAMUEL on CKD: Suspect pre-renal. Will check urine sodium. Cr was 1.3 a few weeks ago. Continue IVF and recheck in AM. #Syncopal episode: Likely related to hypovolemia although story doesn't completely fit this. Would definitely consider brain MRI; touch base with his oncologist to see if this has been done. IVF as above. PT/OT #Hypokalemia: Related to poor PO intake. Will replete and place on protocol. #Metastatic colon adenocarcinoma: Diagnosed 09/2017. Followed by Dr Bridges. Currently on bevacizumab, oxaliplatin, and fluorouracil. #Hepatic cirrhosis: Noted on CT last admission at which time he presented with ascites which were found to be malignant in nature. He does have a history of heavy etoh use. Hep B/C negative. Overall appears compensated from a liver stand point and ascites have resolved. #Dilated aorta: 4.1cm on recent TTE. Saw Dr Diallo, recommended BP control. #HTN: Chronic. Hold home meds for now with minimal PO. Re-institute as needed. Diet: regular VTE ppx: high risk, [facility] Code: full Dispo: Admit under observation for management of above issues.
--- NOTE | 2017-12-16 15:45 | ASMTCMCOM ---
CM Note CM Note Notes: Pt has been admitted with abdominal pain. He has a dx of colon adenocarcinoma and his last chemo was 10 days ago. He has a hx of etoh abuse and cirrhosis. He lives in [place]. CM will follow for any d/c needs. D/C plan: TBD Date Signed: 12/16/2017 03:44 PM Electronically Signed By:JOSE Villanueva
[2017-12-16] MEDS ORDERED: PROTOCOL POTASSIUM 1 DOSE MISC PRN (16:12)
[2017-12-16] MEDS ORDERED: POTASSIUM CL 20 MEQ TAB PO ONE ×2 (16:13→20:18)
[2017-12-16] MEDS: NS 1,000 ML IV SCH (16:33)
[2017-12-16] MEDS: HYDROmorphone HCL 0.5 MG/0.5 ML SYR IVP PRN (17:22)
[2017-12-16] MEDS: HYDROmorphONE/DILAUDID 2 MG TAB PO PRN (20:28)
[2017-12-16] MEDS: HEPARIN 5,000 UNIT/0.5 ML INJ SC SCH (20:29)
[2017-12-17] MEDS: HYDROmorphONE/DILAUDID 2 MG TAB PO PRN ×4 (00:36→21:49)
[2017-12-17] MEDS: HEPARIN 5,000 UNIT/0.5 ML INJ SC SCH ×3 (05:53→21:50)
[2017-12-17 06:18] LABS: PLATELET COUNT 179 10^3/uL (150-400)
[2017-12-17] MEDS ORDERED: POTASSIUM CL 10 MEQ TAB PO ONE ×2 (07:00→21:33)
[2017-12-17] MEDS: NS 1,000 ML IV SCH (08:40)
[2017-12-17] MEDS: HYDROmorphone HCL 0.5 MG/0.5 ML SYR IVP PRN ×3 (10:52→18:37)
--- NOTE | 2017-12-17 12:36 | HOSPPROG ---
Hospitalist Progress Note Assessment/Plan: 62 yo male with h/o metastatic colonic adenocarcinoma, last chemotherapy about 10 days ago, presents with abdominal pain, diarrhea. #Abdominal pain and diarrhea with volume depletion 2/2 Enteropathogenic E coli -Supportive care with IVF's, pain control -relative bowel rest, sips of clears for now -increased pain and distention this am, check KUB and upright #SAMUEL on CKD: Likely pre-renal in setting of volume loss. Cr improved from 2.8 to 1.7 with IVF's overnight. -cont IVF's, follow #Syncope: suspect secondary to volume depletion given above -consider brain MRI, will d/w onc #Hypokalemia: 2/2 GI losses, replace per protocol #Metastatic colon adenocarcinoma: Diagnosed 09/2017. Followed by Dr Bridges. Currently on bevacizumab, oxaliplatin, and fluorouracil. CT showed omental caking. -onc to consult today #Hepatic cirrhosis: h/o malignant ascites, which appears to be resolved. + history of heavy etoh use. Hep B/C negative. Compensated. #Dilated aorta: 4.1cm on recent TTE. Saw Dr Diallo, recommended BP control. #HTN: BP's on the rise. Meds held on admission due to volume depletion -resume 1/2 dose norvasc -cont to hold BB for now Diet: regular VTE ppx: high risk, SQH Code: full Dispo: Change to inpt for ongoing management of infectious enteritis and abdominal pain Subjective: Pt in severe pain, 01/10, just received IV dilaudid 0.4 mg with not much relief. No N/V. Persistent diarrhea overnight. No fevers/chills. No CP or SOB. Objective: Vital Signs Temp Pulse Resp BP Pulse Ox 37.7 C 58 L 16 136/90 H 98 12/17/17 09:01 12/17/17 09:01 12/17/17 09:01 12/17/17 09:01 12/17/17 09:01 Microbiology 12/16/17 17:15 Gastrointestinal Tract Panel (PCR) - Final Stool E.coli Enteropathogenic(Epec) Laboratory Results 12/17/17 06:11 12/17/17 06:15 12/16/17 12/17/17 12/18/17 05:59 05:59 05:59 Intake Total 1420 1649 Balance 1420 1649 PT 14.2 SEC (12.0-15.0) 12/16/17 13:44 INR 1.08 (0.83-1.16) 12/16/17 13:44 - Physical Exam Constitutional: no apparent distress Eyes: PERRL Ears, Nose, Mouth, Throat: moist mucous membranes Cardiovascular: regular rate and rhythym Respiratory: no respiratory distress, clear to auscultation Gastrointestinal: other (soft, moderate distention, +diffuse TTP, +hyperactive BS, no peritoneal signs) Skin: warm Musculoskeletal: full muscle strength Neurologic: AAOx3 Psychiatric: interacting appropriately ICD10 Worksheet Patient Problems: Problems Problem Status Onset Abdominal pain Acute Colon cancer Acute Dehydration Acute Diarrhea Acute Failure to thrive in adult Acute Nausea & vomiting Acute Pain management Acute Ascites Acute Cirrhosis Acute
[2017-12-17] MEDS ORDERED: D5W NS W/ 20 KCl/L 1,000 ML IV SCH (12:45)
--- NOTE | 2017-12-17 14:44 | PDMN ---
Medical Necessity Medical necessity: [facility] M170 Gastroenteritis and PGPM Pain Management: 62yo M with cirrhosis and recently diagnosed metastatic colonic adenocarcinoma with last chemotherapy about 10 days ago presents with several days of diffuse abdominal pain associated with vomiting, diarrhea, inability to tolerate PO found to be dehydrated with hypokalemia (K2.9) and SAMUEL (creat 2.8). IV dilaudid , antiemetics and IVF for supportive care, eval syncopal episode, consider brain MRI, onc consult, replace K+ per protocol, today pt cont w/ worsening abd pain and distension, continue supportive care as described above, bowel rest, KUB orderd. GI PCR panel reveals infectious enteritis, Switch to IP status per MD order 12/17/17 @1228 for infectious enteritis and abd pain, management of severe pain.
--- NOTE | 2017-12-17 15:17 | GCON ---
DATE OF CONSULTATION: 12/17/2017 REASON FOR CONSULTATION: 1. Metastatic colorectal cancer. 2. Abdominal pain with diarrhea. HISTORY OF PRESENT ILLNESS: Schuyler is a pleasant 62-year-old gentleman who is followed by my partne r, Dr. Calderon Bridges. Schuyler was diagnosed with metastatic colorectal cancer in September 2017. He pre sented with increasing abdominal girth and a 40-pound weight loss. A CT scan revealed extensive asci bj and omental caking. A colonoscopy confirmed a mass in the ascending colon. Biopsy revealed malika ocarcinoma with mucinous features. The patient has been treated with 3 cycles of palliative FOLFOX bevacizumab. His most recent treatme nt was given December 05, 2017. He has had good tolerance to treatment. His serum tumor markers hav e declined. His abdominal distension and increased abdominal girth have improved. He has not had an y significant side effects related to his therapy. He presented to the hospital emergency department with an 11-day history of upper abdominal pain and profuse, watery diarrhea. He denies any associated fevers or chills. He denies nausea or vomiting. A CT scan done in the emergency department reveals omental caking related to his known metastatic di sease. There was moderate thickening of the distal ileum and inflammation in the associated mesenter y. His ascites had resolved when compared to prior studies. There was no evidence of a bowel obstru ction. Stool cultures revealed enteropathogenic E coli. The patient has been admitted to the hospit al and is being treated supportively with pain medication and IV fluid as well as electrolyte replace ment. His pain is somewhat better with IV Dilaudid, though he continues to have bouts of fairly kayla re abdominal cramping. PAST MEDICAL HISTORY: 1. Recent diagnosis of metastatic colorectal cancer as outlined above. 2. Hypertension. 3. Chronic renal insufficiency. FAMILY MEDICAL HISTORY: Negative for malignancy. SOCIAL HISTORY: The patient is a nonsmoker. He admits to a history of heavy alcohol in the past but does not currently drink. He is not currently working. He lives alone in [place]. REVIEW OF SYSTEMS: As outlined above. Remainder of the 10-point review of systems is otherwise nega tive. PHYSICAL EXAMINATION: GENERAL: The patient is in [id number] distress. He is having intermitt ent abdominal cramping. He is alert, oriented, and appropriate. EYES: There is no scleral icterus. ABDOMEN: Ehwckr-ok-cwqwqhgeoi distended. There is a firmness in the abdominal wall, likely due to h is known omental thickening. Bowel sounds are hyperactive. There is no significant guarding or rebo und tenderness. EXTREMITIES: No extremity swelling or edema. SKIN: No visible skin rash. LABORATORIES: CT findings as outlined above. Sodium 139, potassium 3.1, chloride 110, bicarb 19, BUN 34, creatinine 1.7. White count 5.8, hemoglo bin 12.2, hematocrit 35.5, platelet count is 179,000. IMPRESSION: 1. Metastatic colorectal cancer with known peritoneal carcinomatosis status post 3 cycles of palliat octavio FOLFOX bevacizumab, most recent given December 05, 2017. 2. Abdominal pain, cramping and diarrhea, likely secondary to enteropathogenic E coli. 3. Hypokalemia secondary to diarrhea. PLAN: Mr. Allen is a pleasant 62-year-old gentleman with known metastatic colorectal cancer and per itoneal carcinomatosis. He is currently receiving palliative chemotherapy with FOLFOX bevacizumab. The patient reports he did not have these symptoms with his 1st 2 cycles of treatment. The overall picture supports an enteropathogenic E coli as the cause of his symptoms. In general, tr eatment is supportive, which is being done. Guidelines recommend against routine administration of a ntibiotics in this setting. The symptoms are generally self-limited. The patient will continue to r emain inpatient and receive IV fluid hydration and electrolyte replacement per protocol. I do think he would benefit from a trial of dicyclomine 20 mg q.6 hours to help with his abdominal cr amping which remains relatively severe. Though this may slow potassium transit in his gut, given christiano t he is having severe diarrhea, I think the potential benefit outweighs the risk and his electrolytes are being monitored closely per protocol. The patient is agreeable to this. He will also continue to receive Dilaudid on an as-needed basis. He does not have any evidence of obstruction on his CT, and his malignancy appears to be responding t o current therapy. His questions were answered. I will discuss his case with floor nursing. Total time for today's visit was approximately 40 minutes, of which greater than 50% was spent in cou nseling and care coordination. /[id number]/MODL
[2017-12-17] MEDS: FAMOTIDINE 20 MG/NACL 50 ML IV SCH ×2 (15:22→21:50)
[2017-12-17] MEDS: DICYCLOMINE 20 MG TAB PO SCH ×2 (15:22→21:49)
[2017-12-18] MEDS: HEPARIN 5,000 UNIT/0.5 ML INJ SC SCH ×3 (05:36→22:34)
[2017-12-18] MEDS: DICYCLOMINE 20 MG TAB PO SCH ×4 (05:37→20:08)
[2017-12-18] MEDS: HYDROmorphONE/DILAUDID 2 MG TAB PO PRN ×2 (05:37→12:48)
[2017-12-18] MEDS: FAMOTIDINE 20 MG/NACL 50 ML IV SCH (10:42)
[2017-12-18] MEDS ORDERED: POTASSIUM CL 10 MEQ TAB PO ONE ×2 (10:52→21:31)
--- NOTE | 2017-12-18 12:26 | ASMTLACE ---
LACE Length of stay for Answers: Less than 1 day current admission Acuity / Level of Answers: Yes Care: Did the patient have an inpatient admission? Comorbidities - select Answers: Any tumor (including all that apply lymphoma or leukemia) Other Notes: cirrhosis # of Emergency department Answers: 1-2 visits in the last 6 months Social determinants Answers: History of substance abuse (ETOH, street drugs, prescription drugs, etc.) Score: 10 Date Signed: 12/18/2017 12:24 PM Electronically Signed By:Marisabel Martino RN
[2017-12-18] MEDS: METOPROLOL TARTRATE 25 MG TAB PO SCH ×2 (12:41→20:08)
--- NOTE | 2017-12-18 12:42 | ASMTCMCOM ---
CM Note CM Note Notes: Patient medically cleared for discharge. Per PT and OT patient is independent with his ADL's and has no current needs. CM available should needs arise. Plan: DC to home . Date Signed: 12/18/2017 12:42 PM Electronically Signed By:Marisabel Martino RN
--- NOTE | 2017-12-18 13:26 | HOSPPROG ---
Hospitalist Progress Note Assessment/Plan: 62 yo male with h/o metastatic colonic adenocarcinoma, last chemotherapy about 10 days ago, presents with abdominal pain, diarrhea. #Abdominal pain and diarrhea with volume depletion 2/2 Enteropathogenic E coli -Supportive care with IVF's, pain control- considered discharge today but pt had severe pain and increased distention after eating -seems to be responding to bentyl, will continue -bland diet as tolerated #SAMUEL on CKD: Likely pre-renal in setting of volume loss. Cr 2.8 on admission, down to 1.1 with IVF's #Syncope: suspect secondary to volume depletion given above #Hypokalemia: 2/2 GI losses, normalized #Metastatic colon adenocarcinoma: Diagnosed 09/2017. Followed by Dr Bridges. Currently on bevacizumab, oxaliplatin, and fluorouracil. CT showed omental caking. -outpt f/u with oncology #Hepatic cirrhosis: h/o malignant ascites, which appears to be resolved. + history of heavy etoh use. Hep B/C negative. Compensated. #Dilated aorta: 4.1cm on recent TTE. Saw Dr Diallo, recommended BP control. #HTN: BP's on the rise. -resume norvasc and metoprolol Diet: regular VTE ppx: high risk, SQ Code: full Dispo: Cont inpt, home when pain controlled and tolerating diet Subjective: PT doing ok this am. Had some eggs for lunch with subsequent severe pain and increased distention. No fevers/chills. No more diarrhea overnight. No N/V. Objective: Vital Signs Temp Pulse Resp BP Pulse Ox 36.4 C 62 15 188/98 H 97 12/18/17 12:19 12/18/17 12:19 12/18/17 12:19 12/18/17 12:23 12/18/17 12:19 Laboratory Results 12/18/17 06:30 12/17/17 12/18/17 12/19/17 05:59 05:59 05:59 Intake Total 3375 Balance 3375 PT 14.2 SEC (12.0-15.0) 12/16/17 13:44 INR 1.08 (0.83-1.16) 12/16/17 13:44 - Physical Exam Constitutional: no apparent distress Eyes: PERRL Ears, Nose, Mouth, Throat: moist mucous membranes Cardiovascular: regular rate and rhythym Respiratory: no respiratory distress, clear to auscultation Gastrointestinal: other (soft, nd, +diffuse TTP, no r/r/g, +BS) Skin: warm Musculoskeletal: full muscle strength Neurologic: AAOx3 Psychiatric: interacting appropriately ICD10 Worksheet Patient Problems: Problems Problem Status Onset Abdominal pain Acute Colon cancer Acute Dehydration Acute Diarrhea Acute Failure to thrive in adult Acute Nausea & vomiting Acute Pain management Acute Ascites Acute Cirrhosis Acute
[2017-12-18] MEDS ORDERED: hydrALAZINE 25 MG TAB PO PRN (15:30)
[2017-12-18] MEDS: FAMOTIDINE 20 MG TAB PO SCH (20:08)
[2017-12-18] MEDS ORDERED: POTASSIUM CL 20 MEQ/15 ML UDCUP PO ONE (22:30)
[2017-12-19] MEDS: DICYCLOMINE 20 MG TAB PO SCH ×2 (05:38→11:11)
[2017-12-19] MEDS: HEPARIN 5,000 UNIT/0.5 ML INJ SC SCH ×2 (05:38→16:30)
[2017-12-19] MEDS ORDERED: POTASSIUM CL 10 MEQ TAB PO ONE ×2 (06:54→21:21)
[2017-12-19] MEDS: FAMOTIDINE 20 MG TAB PO SCH ×2 (11:11→20:05)
[2017-12-19] MEDS: METOPROLOL TARTRATE 25 MG TAB PO SCH ×2 (11:11→20:06)
[2017-12-19] MEDS ORDERED: predniSONE 20 MG TAB PO ONE (13:53)
[2017-12-19] MEDS ORDERED: LOPERAMIDE HCL 1 MG/5 ML UDL PO PRN (14:06)
--- NOTE | 2017-12-19 14:16 | ASMTCMCOM ---
CM Note CM Note Notes: Reviewed plan of care with Dr. Burden. She would like a referral placed for an outpatient palliative care consult. Met with the patient who is likely to discharge home later today and he is agreeable to referral. Referral to [facility] via [facility]. No other needs identified at this time. Plan : Home with out patient palliative care referral to [facility]. Date Signed: 12/19/2017 10:29 AM Electronically Signed By:Marisabel Martino RN
--- NOTE | 2017-12-19 14:16 | HOSPPROG ---
Hospitalist Progress Note Assessment/Plan: #Acute diarrhea: due to EPEP. Supportive care, PRN immodium #Hypokalemia: resolved #Acute gout flare: left great toe. Pred burst #SAMUEL on CKD: resolved with IVFs #Metastatic colon cancer: FU with Onc outpatient. PC consult #Diet: regular #DVT ppx: Lovenox Subjective: 7 nonbloody, diffuse, watery stools today Objective: Vital Signs Temp Pulse Resp BP Pulse Ox 36.5 C 57 L 14 144/99 H 97 12/19/17 07:15 12/19/17 07:15 12/19/17 07:15 12/19/17 07:15 12/19/17 07:15 Laboratory Results 12/19/17 05:45 12/18/17 12/19/17 12/20/17 05:59 05:59 05:59 Intake Total 3375 1700 Balance 3375 1700 PT 14.2 SEC (12.0-15.0) 12/16/17 13:44 INR 1.08 (0.83-1.16) 12/16/17 13:44 - Time Spent With Patient Time Spent with Patient: greater than 35 minutes Time Spent with Patient: Greater than 35 minutes spent on this patients care, greater than 50% of time spent counseling, educating, and coordinating care regarding the above mentioned plan. - Physical Exam Constitutional: no apparent distress Eyes: PERRL Ears, Nose, Mouth, Throat: moist mucous membranes Cardiovascular: regular rate and rhythym Respiratory: no respiratory distress Gastrointestinal: normoactive bowel sounds, soft, non-tender abdomen, No tenderness Genitourinary: no bladder fullness Skin: warm Musculoskeletal: other (left great toe mildly pinl, tender to light touch. Not cellulitic) Neurologic: AAOx3, CN II-XII Intact ICD10 Worksheet Patient Problems: Problems Problem Status Onset Abdominal pain Acute Colon cancer Acute Dehydration Acute Diarrhea Acute Failure to thrive in adult Acute Nausea & vomiting Acute Pain management Acute Ascites Acute Cirrhosis Acute
--- NOTE | 2017-12-19 14:32 | GDS ---
DISCHARGE DIAGNOSES: 1. Metastatic colorectal cancer. 2. Abdominal pain. 3. Enteropathogenic Escherichia coli infection. 4. Hypertension. 5. Chronic kidney disease. 6. Acute gout flare. HISTORY OF PRESENT ILLNESS: A 62-year-old male with metastatic colorectal cancer diagnosed September 2015 . He has been treated with 3 cycles of palliative FOLFOX, last dose given December 05. His serum tu mor markers have declined improved. His abdominal distention and girth have also decreased. He presented to the ER on 12/17, with 11 days of upper abdominal pain and profuse watery diarrhea. D enies fevers, chills, or sweats. No nausea, vomiting. CT scan showed omental caking related to his known metastatic disease. HOSPITAL COURSE BY PROBLEM: 1. Acute diarrhea: Secondary to EPEC infection. It was contraindicated to treat with antibiotics, thus he was treated with supportive care here. Stool remains nonbloody. He can use Imodium for reli ef. He is tolerating and taking in good p.o. Electrolytes stable today. 2. Hypokalemia: Secondary to diffuse diarrhea. This has been repleted. 3. Acute gout flare of his left great toe: Prednisone burst for 5 days. Would avoid colchicine and NSAIDs with CKD. 4. Hypertension. Resume amlodipine and metoprolol. 5. Metastatic colorectal cancer: Followed by Dr. Bridges. Will follow up with them next week for continued chemotherapy. I had a discussion with him as far as goal planning and he is agreeable to o utpatient palliative care. DISPOSITION: Patient is stable for discharge home. FOLLOW UP: 1. Dr. Bridges. 2. Dr. Mazariegos, his PCP. 3. Outpatient palliative care. NEW MEDICATIONS: Prednisone 40 mg for 4 days, Bentyl for abdominal pain. PHYSICAL EXAMINATION: VITAL SIGNS: Today, temperature 36.5, blood pressure 144/99, heart rate is in the 50s, respirations 14, 97% on room air. GENERAL: Well-appearing, no acute distress. HEENT: PE RRLA. Moist mucous membranes. CV: Regular rhythm. CHEST: Right upper port without signs of infec tion. LUNGS: Clear. ABDOMEN: Soft, nontender, nondistended. Positive bowel sounds. : No Fole y. MUSCULOSKELETAL: Left great toe with mild erythema. Significant tenderness with palpation, not cellulitic. NEURO: 2 through 12 intact. PSYCH: Alert and oriented x3. Time spent on discharge: Greater than 30 minutes, counseling patient on medications, followup plan, and coordinating discharge. /[id number]/MODL
[2017-12-19] MEDS ORDERED: POTASSIUM CL 20 MEQ/15 ML UDCUP PO ONE (14:45)
[2017-12-20 07:32] VITALS: BP 143/97
[2017-12-20] MEDS ORDERED: ENOXAPARIN 40 MG/0.4 ML SYR SC SCH (09:00)
[2017-12-20] MEDS: METOPROLOL TARTRATE 25 MG TAB PO SCH (10:11)
[2017-12-20] MEDS: FAMOTIDINE 20 MG TAB PO SCH (10:11)
--- NOTE | 2017-12-20 12:58 | ASMTCMCOM ---
CM Note CM Note Notes: Medically cleared for discharge, he was delayed in discharge due to physical symptoms. He has palliative care outpatient no other needs identified. Plan: Dc to home with outpatient palliative with [facility]. Date Signed: 12/20/2017 12:22 PM Electronically Signed By:Marisabel Martino RN
--- NOTE | 2017-12-20 13:22 | GDS ---
This is attending physician not dictated discharge summary for patient Schuyler Allen #[id number] da te admission 12/17/2017 discharge 12/2017. Next Please see full discharge summary dated 12/19/2017, for full details. The patient was kept overnight with persistent diarrhea, but this is improved and plan is unchanged from prior discharge summary. PHYSICAL EXAMINATION: VITAL SIGNS: Today, temperature 37.1 blood pressure 143/97, heart rate in the 50s to 60s, respirations 16, 97% on room air. GENERAL: Well-appearing, appears brighter. No acute dis tress. HEENT: PERRLA. Moist mucous membranes. CVS: Regular rate and rhythm. RESPIRATORY: Lungs are cl ear. ABDOMEN: Soft, nontender. MUSCULOSKELETAL: Left great toe with less swelling, erythema and pain. NEURO: 2 through 12 intact. PSYCH: Alert and oriented x3. DISPOSITION: He is stable for discharge. NEW MEDICATIONS: Prednisone, Bentyl. FOLLOWUP: 1. Dr. Mazariegos. 2. Dr. Bridges. 3. Outpatient palliative care. /[id number]/MODL
== END 2017-12-20 11:00 | disposition home or self-care (01) | DRG 248 ==
LOC: F1N 15:19 → OBSVTOIN 12-17 12:28
PROVIDERS: ADMIT Internal Medicine; ATTEND Internal Medicine
DX: A04.0 Enteropathogenic Escherichia coli infection (principal); C19 Malignant neoplasm of rectosigmoid junction; K74.60 Unspecified cirrhosis of liver; E86.0 Dehydration; E87.6 Hypokalemia; I12.9 Hypertensive chronic kidney disease with stage 1 through stage 4 chronic kidney disease, or unspecified chronic kidney disease; N18.9 Chronic kidney disease, unspecified; M10.9 Gout, unspecified; I77.819 Aortic ectasia, unspecified site
CPT/HCPCS: 96374; 97161-GP; 97166-GO; G0378; J1170; J1642; J1644; J1650; J7512

== ENCOUNTER 2018-03-27 13:03 | Inpatient (IN) | payer MEDICAID ==
[2018-03-27] MEDS ORDERED: NS 1,000 ML IV ONE (13:17)
--- NOTE | 2018-03-27 13:17 | EDPHY ---
H & P Stated Complaint: diarrhea/dehydration secondary to chemo Time Seen by Provider: 03/27/18 13:16 HPI/ROS: CHIEF COMPLAINT: Dehydration, acute renal failure HISTORY OF PRESENT ILLNESS: The patient presents the emergency department with dehydration from chronic diarrhea chemotherapy. The patient saw his oncologist yesterday who did order laboratory testing and the patient was notified of a elevated creatinine in the high 3 range. He was referred to the ED for further evaluation. The patient reports he has had decreased appetite and early satiety since beginning chemotherapy for colon cancer approximately 1 month ago. The patient is also on medications for high blood pressure which he has not been taking today at the recommendation of his oncologist. Patient denies any fever, significant abdominal pain, congestion, melena or hematemesis. REVIEW OF SYSTEMS: A comprehensive 10 point review of systems is otherwise negative aside from elements mentioned in the history of present illness. Source: Patient Exam Limitations: No limitations - Personal History Current Tetanus Diphtheria and Acellular Pertussis (TDAP): Yes - Medical/Surgical History Hx Asthma: No Hx Chronic Respiratory Disease: No Hx Diabetes: No Hx Cardiac Disease: Yes Hx Renal Disease: Yes Hx Cirrhosis: No Hx Alcoholism: No Hx HIV/AIDS: No Hx Splenectomy or Spleen Trauma: No Other PMH: stasis ulcers bilat Lower ext, htn, colon CA - Social History Smoking Status: Never smoked - Physical Exam Exam: General Appearance: Alert, no distress Eyes: Pupils equal and round no pallor or injection ENT, Mouth: Dry mucous membranes, poor dentition Respiratory: There are no retractions, lungs are clear to auscultation Cardiovascular: Regular rate and rhythm Gastrointestinal: Abdomen is soft and nontender, no masses, bowel sounds normal Neurological: 5/5 strength noted all 4 extremities Skin: Warm and dry, no rashes Musculoskeletal: Neck is supple nontender Extremities: symmetrical, full range of motion Constitutional: Initial Vital Signs Temperature (C) 36.3 C 03/27/18 13:06 Heart Rate 79 03/27/18 13:06 Respiratory Rate 16 03/27/18 13:06 Blood Pressure 119/77 03/27/18 13:06 O2 Sat (%) 93 03/27/18 13:06 O2 Delivery Mode Room Air Allergies/Adverse Reactions: NSAIDS (Non-Steroidal Anti-Inflamma Allergy (Mild, Verified 12/16/17 12:57) Other-Enter Comments Home Medications: Medication Instructions Recorded Metoprolol Tartrate [Lopressor 25 25 mg PO BID 09/26/17 mg (*)] amLODIPine BESYLATE [Norvasc 10 mg 10 mg PO DAILY 09/26/17 (*)] Famotidine [Pepcid 20 MG (*)] 20 mg PO BID #60 tab 12/18/17 Diphenoxylate HCl/Atrop Sulf 1 tab PO QID PRN 03/27/18 [Lomotil Tab (*)] Medical Decision Making - Diagnostics EKG Interpretation: EKG: Complete interpretation has been separately recorded in the [facility] archive. Summary impression: Sinus rhythm, rate 80, nonspecific ST T wave changes, single PVC. ED Course/Re-evaluation: The patient presents the emergency department with dehydration secondary to chronic diarrhea. The patient was noted to have acute renal failure based upon testing yesterday. He arrives to emergency department today with stable vital signs. The patient had an IV established and received 2 L of normal saline. Reviewed laboratory studies from yesterday and noted creatinine was 3.9 up from 1 with a normal potassium. Repeat laboratory testing has been ordered in the emergency department. Consultation was made with Dr. Baljeet Carvalho at 2:00 p.m. who will admit the patient. Metabolic panel in the emergency department today demonstrates a creatinine of 4.0. The potassium continues to be normal. EKG demonstrates no evidence of arrhythmia. Patient is transferred to medical-surgical floor 2:20 p.m.. Differential Diagnosis: Differential diagnosis considered includes dehydration, renal failure, hyperkalemia, dehydration, metabolic derangement - Data Points Laboratory Results: Laboratory Results 03/27/18 13:30 03/27/18 13:30 03/27/18 03/27/18 13:30 13:30 WBC 4.32 10^3/uL 10^3/uL (3.80-9.50) RBC 4.39 10^6/uL L 10^6/uL (4.40-6.38) Hgb 15.6 g/dL g/dL (13.7-17.5) Hct 43.1 % % (40.0-51.0) MCV 98.2 fL fL (81.5-99.8) MCH 35.5 pg H pg (27.9-34.1) MCHC 36.2 g/dL g/dL (32.4-36.7) RDW 15.6 % H % (11.5-15.2) Plt Count 217 10^3/uL 10^3/uL (150-400) MPV 10.4 fL fL (8.7-11.7) Neut % (Auto) 40.5 % % (39.3-74.2) Lymph % (Auto) 29.2 % % (15.0-45.0) [place] % (Auto) 28.9 % H % (4.5-13.0) Eos % (Auto) 0.7 % % (0.6-7.6) Baso % (Auto) 0.7 % % (0.3-1.7) Nucleat RBC Rel Count 0.0 % % (0.0-0.2) Absolute Neuts (auto) 1.75 10^3/uL 10^3/uL (1.70-6.50) Absolute Lymphs (auto) 1.26 10^3/uL 10^3/uL (1.00-3.00) Absolute Monos (auto) 1.25 10^3/uL H 10^3/uL (0.30-0.80) Absolute Eos (auto) 0.03 10^3/uL 10^3/uL (0.03-0.40) Absolute Basos (auto) 0.03 10^3/uL 10^3/uL (0.02-0.10) Absolute Nucleated RBC 0.00 10^3/uL 10^3/uL (0-0.01) Immature Gran % 0.0 % % (0.0-1.1) Immature Gran # 0.00 10^3/uL 10^3/uL (0.00-0.10) Smear Review By Pending Sodium 134 mEq/L L mEq/L (135-145) Potassium 3.1 mEq/L L mEq/L (3.5-5.2) Chloride 103 mEq/L mEq/L (97-110) Carbon Dioxide 15 mEq/l L mEq/l (22-31) Anion Gap 16 mEq/L H mEq/L (6-14) BUN 66 mg/dL H mg/dL (7-23) Creatinine 4.0 mg/dL H mg/dL (0.7-1.3) Estimated GFR 15 Glucose 90 mg/dL mg/dL (70-100) Calcium 8.6 mg/dL mg/dL (8.5-10.4) Medications Given: Discontinued Medications Sodium Chloride (Ns) 1,000 mls @ 0 mls/hr IV EDNOW ONE; Wide Open PRN Reason: Protocol Stop: 03/27/18 13:18 Last Admin: 03/27/18 13:34 Dose: 1,000 mls Departure - Departure Disposition: [facility] Acute Clinical Impression: Dehydration, Acute renal failure (ARF), Metastatic colon cancer to liver Condition: Fair
[2018-03-27 14:01] LABS: PLATELET COUNT 217 10^3/uL (150-400)
--- NOTE | 2018-03-27 14:01 | CPEKG ---
Test Reason : OPEN Blood Pressure : / mmHG Vent. Rate : 080 BPM Atrial Rate : 083 BPM P-R Int : 158 ms QRS Dur : 097 ms QT Int : 368 ms P-R-T Axes : 037 -49 099 degrees QTc Int : 425 ms Sinus rhythm Ventricular premature complex Left anterior fascicular block Confirmed by Raul Hernández ([id number]) on 03/27/2018 2:00:56 PM Referred By: Confirmed By:Raul Hernández
[2018-03-27] MEDS ORDERED: ACETAMINOPHEN 325 MG TAB PO PRN (14:11)
[2018-03-27] MEDS ORDERED: ONDANSETRON DISINTEGRATING 4 MG TAB PO PRN (14:11)
[2018-03-27] MEDS ORDERED: ONDANSETRON 4 MG/2 ML VIAL IVP PRN (14:11)
--- NOTE | 2018-03-27 14:15 | PDGENHP ---
History and Physical - Chief Complaint Diarrhea, SAMUEL - History of Present Illness Shcuyler Allen is a 62 yo M with a PMHX of Metastatic Colon Cancer, Gout, HTN who presents to [facility] for diarrhea, SAMUEL. He reports that he was last given chemotherapy 2 weeks ago and since then he has had frequent diarrhea. He denies abdominal pain but does admit to some cramping. He denies any hematochezia, nausea/vomiting, shortness of breath, chest pain. He states that since chemotherapy he has also had a change in taste sensation that has made food unappetizing and has had little to no appetite recently. He reports a 12 lb weight loss in last few weeks. He reports no changes in urination, dysuria. History Information - Allergies/Home Medication List Allergies/Adverse Reactions: NSAIDS (Non-Steroidal Anti-Inflamma Allergy (Mild, Verified 12/16/17 12:57) Other-Enter Comments Home Medications: Metoprolol Tartrate [Lopressor 25 mg (*)] 25 mg PO BID 09/26/17 [Last Taken ] amLODIPine BESYLATE [Norvasc 10 mg (*)] 10 mg PO DAILY 09/26/17 [Last Taken ] Diphenoxylate HCl/Atrop Sulf [Lomotil Tab (*)] 1 tab PO QID PRN 03/27/18 [Last Taken 03/26/18] I have personally reviewed and updated: family history, medical history, social history, surgical history - Past Medical History Additional medical history: colonic adenocarcinoma currently on chemotherapy ( followed by Dr Bridges), hepatic cirrhosis, HTN, chronic venous stasis of lower extremities, CKD - Surgical History Additional surgical history: laparotomy as child for unclear reasons - Family History Positive for: non-pertinent Additional family history: brother: diabetes; no known colonic cancers - Social History Smoking Status: Never smoked Additional social history: lives in [place], had to quit working because of fatigue Review of Systems Review of Systems: ROS: 10pt was reviewed & negative except for what was stated in HPI & below Physical Exam Physical Exam: Temp Pulse Resp BP Pulse Ox 36.3 C 79 16 119/77 93 03/27/18 13:06 03/27/18 13:06 03/27/18 13:06 03/27/18 13:06 03/27/18 13:06 Constitutional: no apparent distress Eyes: PERRL Ears, Nose, Mouth, Throat: dry mucous membranes Cardiovascular: regular rate and rhythym Respiratory: no respiratory distress Gastrointestinal: soft, non-tender abdomen Genitourinary: no bladder tenderness Skin: warm Musculoskeletal: full muscle strength Neurologic: AAOx3 Psychiatric: interacting appropriately Lab Data & Imaging Review 03/27/18 13:30 03/27/18 13:30 WBC 4.32 10^3/uL (3.80-9.50) 03/27/18 13:30 RBC 4.39 10^6/uL (4.40-6.38) L 03/27/18 13:30 Hgb 15.6 g/dL (13.7-17.5) 03/27/18 13:30 Hct 43.1 % (40.0-51.0) 03/27/18 13:30 MCV 98.2 fL (81.5-99.8) 03/27/18 13:30 MCH 35.5 pg (27.9-34.1) H 03/27/18 13:30 MCHC 36.2 g/dL (32.4-36.7) 03/27/18 13:30 RDW 15.6 % (11.5-15.2) H 03/27/18 13:30 Plt Count 217 10^3/uL (150-400) 03/27/18 13:30 MPV 10.4 fL (8.7-11.7) 03/27/18 13:30 Neut % (Auto) 40.5 % (39.3-74.2) 03/27/18 13:30 Lymph % (Auto) 29.2 % (15.0-45.0) 03/27/18 13:30 [place] % (Auto) 28.9 % (4.5-13.0) H 03/27/18 13:30 Eos % (Auto) 0.7 % (0.6-7.6) 03/27/18 13:30 Baso % (Auto) 0.7 % (0.3-1.7) 03/27/18 13:30 Nucleat RBC Rel Count 0.0 % (0.0-0.2) 03/27/18 13:30 Absolute Neuts (auto) 1.75 10^3/uL (1.70-6.50) 03/27/18 13:30 Absolute Lymphs (auto) 1.26 10^3/uL (1.00-3.00) 03/27/18 13:30 Absolute Monos (auto) 1.25 10^3/uL (0.30-0.80) H 03/27/18 13:30 Absolute Eos (auto) 0.03 10^3/uL (0.03-0.40) 03/27/18 13:30 Absolute Basos (auto) 0.03 10^3/uL (0.02-0.10) 03/27/18 13:30 Absolute Nucleated RBC 0.00 10^3/uL (0-0.01) 03/27/18 13:30 Immature Gran % 0.0 % (0.0-1.1) 03/27/18 13:30 Immature Gran # 0.00 10^3/uL (0.00-0.10) 03/27/18 13:30 Sodium 134 mEq/L (135-145) L 03/27/18 13:30 Potassium 3.1 mEq/L (3.5-5.2) L 03/27/18 13:30 Chloride 103 mEq/L (97-110) 03/27/18 13:30 Carbon Dioxide 15 mEq/l (22-31) L 03/27/18 13:30 Anion Gap 16 mEq/L (6-14) H 03/27/18 13:30 BUN 66 mg/dL (7-23) H 03/27/18 13:30 Creatinine 4.0 mg/dL (0.7-1.3) H 03/27/18 13:30 Estimated GFR 15 03/27/18 13:30 Glucose 90 mg/dL (70-100) 03/27/18 13:30 Calcium 8.6 mg/dL (8.5-10.4) 03/27/18 13:30 Assessment & Plan Assessment: SAMUEL on CKD - Baseline Cr 1.3-1.5, 3.9 on admission today - BUN elevated to 66 - Reports diarrhea and decreased PO intake since recent chemo - S/p 1 L NS in ED, will continue mIVF overnight - Ordered FENa - Will order Renal U/S to evaluate - Continue to monitor I/O, BMP, avoid nephrotoxic agents Diarrhea - Reports since chemo 2 weeks ago - Does have hx of EPEC - Will check GI PCR - If GI PCR negative, start Imodium PRN - Supportive management with IVF, Anti-emetics PRN Hyponatremia - Na 134 on admission - Likely in setting of decreased PO intake - IVF as above - Continue to monitor Dehydration (Acute) - In setting of recent chemo - Management of SAMUEL as above Metastatic colon cancer to liver (Acute) - Follows with Dr. Genao - Consult Oncology in the AM HTN - Hold home anti-hypertensives in setting of dehydration - Restart home BP meds as needed (Amlodipine, Metoprolol) GERD - Continue home medication FEN: IVF, Regular Diet Code: FULL DVT PPx; SubQ Heparin Dispo: Admit to Observation, pending clinical course
[2018-03-27] MEDS: NS 1,000 ML IV SCH (15:04)
--- NOTE | 2018-03-27 15:16 | ASMTCMCOM ---
CM Note CM Note Notes: Patient chart reviewed. Hx of metastatic colon cancer. Admitted with diarrhea, dehydration and SAMUEL. He reports a 14 lb weight loss. Followed by [facility]. CM to follow for needs. Plan: TBD Date Signed: 03/27/2018 03:15 PM Electronically Signed By:Marisabel Martino RN
[2018-03-27] MEDS: HEPARIN 5,000 UNIT/0.5 ML INJ SC SCH (21:54)
[2018-03-27] MEDS: FAMOTIDINE 20 MG TAB PO SCH (21:54)
[2018-03-27] MEDS: LOPERAMIDE HCL 2 MG CAP PO PRN (22:20)
[2018-03-28 05:21] LABS: PLATELET COUNT 191 10^3/uL (150-400)
[2018-03-28] MEDS: HEPARIN 5,000 UNIT/0.5 ML INJ SC SCH ×3 (06:33→22:21)
[2018-03-28] MEDS: LOPERAMIDE HCL 2 MG CAP PO PRN ×2 (11:28→20:34)
[2018-03-28] MEDS: NS 1,000 ML IV SCH (11:31)
--- NOTE | 2018-03-28 12:29 | ASMTCMCOM ---
CM Note CM Note Notes: Patient plan of care reviewed in am rounds. 62 year old male with known colon cancer admitted with Nausea and diarrhea resulting in dehydration. He is anxious to leave as he wants to join family members to celebrate the holiday. He is current with [facility] palliative care. No other needs identified at this time. Plan: Dc to home when medically stable for discharge. Date Signed: 03/28/2018 12:28 PM Electronically Signed By:Marisabel Martino RN
[2018-03-28] MEDS ORDERED: DIPHENOXYLATE/ATROPINE LOMOTIL 1 TAB PO PRN (14:42)
[2018-03-28] MEDS ORDERED: POTASSIUM CL 20 MEQ/15 ML UDCUP PO ONE (14:55)
--- NOTE | 2018-03-28 14:56 | HOSPPROG ---
Hospitalist Progress Note Assessment/Plan: The patient is a 62-year-old male with PMH metastatic colon cancer who was admitted for acute kidney injury from dehydration/diarrhea induced by chemotherapy. This patient is new to me. Reviewed patient's chart/records for this visit. ASSESSMENT/PLAN: SAMUEL on CKD st 3, baseline Cr 1.3 - improved -FeNa < 0.1%, prerenal cause Hypokalemia Dehydration, improved Diarrhea, persistent Chemotherapy adverse effects Stage IV colon cancer Hyponatremia, i resolved Hypertension GERD -diarrhea better with Imodium. -Continue IVF. - replace potassium - check a.m. Labs -I have discussed with the oncologist-they are aware of the chemotherapy side effects and are working on a plan to adjust patient's regimen. VTE prophylaxis: Heparin Code Status: Full code Status: Changing to inpatient for greater than 2 midnight stay for persistent acute kidney injury and dehydration/diarrhea. [place] [facility] [place] ____ SUBJECTIVE: Today patient continues to have diarrhea. He admits it is also slightly better with Imodium. OBJECTIVE: Physical Exam: General: The patient is a male who is alert and in no acute distress. HEENT: normocephalic, extraocular movements intact, conjunctivae clear. Mucous membranes moist. Neck: trachea midline, no visible masses. CV: +S1/S2, RRR, no MRG. Resp: unlabored, CTAB no RRW. Abd: soft and nondistended. Musculoskeletal: Normal muscle tone/bulk. Neuro: cranial nerves II XII grossly intact. Intact gross motor and sensory function. Psych: Appropriate mood and appropriate affect. Skin: Mild pallor. No petechiae. Heme/lymph: No peripheral edema at bilateral lower extremities. Labs/Imaging/Other Tests: Personally reviewed/interpreted. Objective: Vital Signs Temp Pulse Resp BP Pulse Ox 36.4 C 58 L 16 157/98 H 94 03/28/18 08:45 03/28/18 08:45 03/28/18 08:45 03/28/18 08:45 03/28/18 08:45 Laboratory Results 03/28/18 04:54 03/28/18 04:54 03/27/18 03/28/18 03/29/18 05:59 05:59 05:59 Intake Total 1600 Output Total 200 Balance 1400 - Time Spent With Patient Time Spent with Patient: greater than 35 minutes Time Spent with Patient: Greater than 35 minutes spent on this patients care, greater than 50% of time spent counseling, educating, and coordinating care regarding the above mentioned plan. ICD10 Worksheet Patient Problems: Problems Problem Status Onset Acute renal failure (ARF) Acute Dehydration Acute Metastatic colon cancer to liver Acute Abdominal pain Acute Ascites Acute Cirrhosis Acute Colon cancer Acute Diarrhea Acute Failure to thrive in adult Acute Nausea & vomiting Acute Pain management Acute
[2018-03-28] MEDS: METOPROLOL TARTRATE 25 MG TAB PO SCH ×2 (15:22→22:09)
[2018-03-28] MEDS: FAMOTIDINE 20 MG TAB PO SCH (20:34)
[2018-03-29 04:39] LABS: PLATELET COUNT 214 10^3/uL (150-400)
[2018-03-29] MEDS: HEPARIN 5,000 UNIT/0.5 ML INJ SC SCH ×3 (06:02→21:24)
[2018-03-29] MEDS ORDERED: MAGNESIUM SULF 2 GM/WATER 50 ML IV ONE (08:49)
[2018-03-29] MEDS ORDERED: POTASSIUM CL 20 MEQ TAB PO ONE (08:51)
[2018-03-29] MEDS: METOPROLOL TARTRATE 25 MG TAB PO SCH ×2 (09:57→21:23)
[2018-03-29] MEDS: LOPERAMIDE HCL 2 MG CAP PO PRN (10:12)
--- NOTE | 2018-03-29 13:33 | HOSPPROG ---
Hospitalist Progress Note Assessment/Plan: The patient is a 62-year-old male with PMH metastatic colon cancer who was admitted for acute kidney injury from dehydration/diarrhea induced by chemotherapy. This patient is new to me. Reviewed patient's chart/records for this visit. ASSESSMENT/PLAN: SAMUEL on CKD st 3, baseline Cr 1.3 - improved -FeNa < 0.1%, prerenal cause Hypokalemia Hypomagnesemia Dehydration, improved Diarrhea, persistent Chemotherapy adverse effects Stage IV colon cancer Hyponatremia, resolved Hypertension GERD -diarrhea better with Imodium. -Continue IVF. -Replace potassium, magnesium -Check a.m. Labs -I have discussed with the oncologist-they are aware of the chemotherapy side effects and are working on a plan to adjust patient's regimen. VTE prophylaxis: Heparin Code Status: Full code Status: Inpatient for greater than 2 midnight stay for persistent acute kidney injury and dehydration/diarrhea. Disposition: [facility] with discharge anticipated tomorrow ____ SUBJECTIVE: Today patient continues to have diarrhea. OBJECTIVE: Physical Exam: General: The patient is a male who is alert and in no acute distress. HEENT: normocephalic, extraocular movements intact, conjunctivae clear. Mucous membranes moist. Neck: trachea midline, no visible masses. CV: +S1/S2, RRR, no MRG. Resp: unlabored, CTAB no RRW. Abd: soft and nondistended. Musculoskeletal: Normal muscle tone/bulk. Neuro: cranial nerves II XII grossly intact. Intact gross motor and sensory function. Psych: Appropriate mood and appropriate affect. Skin: Mild pallor. No petechiae. Heme/lymph: No peripheral edema at bilateral lower extremities. Labs/Imaging/Other Tests: Personally reviewed/interpreted. Objective: Vital Signs Temp Pulse Resp BP Pulse Ox 36.4 C 64 16 142/92 H 96 03/29/18 08:35 03/29/18 08:35 03/29/18 08:35 03/29/18 08:35 03/29/18 08:35 Laboratory Results 03/29/18 03:30 03/29/18 03:30 03/28/18 03/29/18 03/30/18 05:59 05:59 05:59 Intake Total 1600 600 Output Total 200 Balance 1400 600 ICD10 Worksheet Patient Problems: Problems Problem Status Onset Acute renal failure (ARF) Acute Dehydration Acute Metastatic colon cancer to liver Acute Abdominal pain Acute Ascites Acute Cirrhosis Acute Colon cancer Acute Diarrhea Acute Failure to thrive in adult Acute Nausea & vomiting Acute Pain management Acute
[2018-03-29] MEDS ORDERED: HALOPERIDOL LACT 5 MG/ML INJ IVP PRN (14:45)
--- NOTE | 2018-03-29 16:01 | PDMN ---
Medical Necessity Medical necessity: Pt meets IP criteria as of 03/29/2018 per and MCG [id number] ( Renal Failure, acute); est los > 2 mn for ongoing tx and management of SAMUEL with diarrhea, hypomagnesmia, and hypokalemia in the setting of chemotherapy for metastatic colon cancer; requiring IVF, nausea control, and electrolyte protocol.
[2018-03-29] MEDS: FAMOTIDINE 20 MG TAB PO SCH (21:23)
[2018-03-30] MEDS: LOPERAMIDE HCL 2 MG CAP PO PRN (04:57)
[2018-03-30] MEDS: HEPARIN 5,000 UNIT/0.5 ML INJ SC SCH (06:16)
[2018-03-30 08:33] VITALS: BP 122/78
--- NOTE | 2018-03-30 09:01 | PDIAF ---
- Diagnosis Diagnosis: Diarrhea, Chemotherapy side effect, Dehydration, St IV colon CA Code Status: Full Code - Medication Management Discharge Medications: electronically signed and located in the Home Medication List. - Orders Services needed: Home Care, Registered Nurse, Physical Therapy Home Care Face to Face: I certify that this patient was under my care and that I had the required [id number] encounter meeting the encounter requirements on the discharge day. My findings support the fact that the patient is homebound as defined in Home Care Face to Face Continued: CMS Chapter 7 Medicare Benefits Manual 30.1.1 , The condition of the patient is such that there exists a normal inability to leave home and consequently, leaving home would require a considerable and taxing effort. Isolation Type: None Diet Recommendation: no restrictions on diet Diet Texture: Regular Texture Diet Additional Instructions: Recommend you drink 3-4 L (about 6 pint glasses) of of water daily while you have diarrhea. You can drop flavored electrolyte tablets or hydration powder in the water to make the water more palatable. Recheck your labs on Monday through home healthcare. - Labs/Radiology BMP Date: 04/02/18 (send results to [facility] - Dr. Bridges) - Follow Up Care Current Providers and Referrals: Calderon Bridges MD [Medical Doctor] - follow up in 1 week Regino Mazariegos MD [Primary Care Provider] - follow up as scheduled
--- NOTE | 2018-03-30 09:44 | PDDCSUM ---
Discharge Summary Discharge Summary: Date of Admission: March 27, 2018 Date of Discharge: March 30, 2018 Discharge Diagnoses: Severe diarrhea Chemotherapy adverse effect Acute kidney injury on CKD, newly at baseline Non anion gap metabolic acidosis, improved Stage IV colon cancer Hypertension GERD Admission Diagnoses: A KI on CKD Diarrhea Hyponatremia Acute dehydration Metastatic colon cancer to liver Hypertension GERD Consultants: None. Hospital Course: The patient is a 62-year-old male with past medical history of metastatic colon cancer who presented to [facility] for diarrhea and acute kidney injury with a creatinine of 4 (baseline Cr 1.3). His FeNa was 0.2%, indicating acute dehydration as the cause of SAMUEL. Patient reported multiple episodes of daily liquid diarrhea secondary to his chemotherapy. He had already been in touch with his oncologist regarding changing his treatment plan. He had tried Lomotil and [id number] loperamide in an attempt to slow down diarrhea, but these medications did not help. In the hospital, the patient was given IV fluid rehydration. His electrolytes were replaced as needed. After several days, he was feeling better and his creatinine was down to 1.4. His baseline creatinine is 1.3. Since patient was having persistent diarrhea which was only slowing a little with continued anti diarrheal, he was discharged with a recommendation that he gets 1 L of normal saline boluses 3 times a week. The patient was also recommended to drink more water than he had been consuming previously. The patient was also put on low-dose Haldol as needed for diarrhea. Physical Exam: Gen: NAD, alert, oriented. HEENT: MMM. MSK: ambulating. Skin: adequate skin turgor. Condition: Fair. Discharged to: Home. Continue palliative half-way visit. Pertinent tests/labs/imaging: Sodium on admission 134, 140 on discharge. Potassium on mission 3.1, 3.7 on discharge %period% creatinine 4.0 on admission, 1.4 on discharge. Medications: Please see med rec form. Ultrasound of abdomen/pelvis: No hydronephrosis. Incidental cyst mid add right upper kidney. EKG: Sinus rhythm, PVC, Left anterior fascicular block. Special instructions: Recommend you drink 3-4 L (about 6-8 pint glasses) of of water daily while you have diarrhea. You can drop flavored electrolyte tablets or hydration powder in the water to make the water more palatable. Recheck your labs on Monday through [facility]. Recommend you come to [facility] for IV normal saline infusions next week () -- our case work aide will coordinate with your nurse navigator and provider at [facility]. Please call [facility] to make an appointment for Monday 04/02 for follow up labs and saline infusion. Follow up: Follow up with oncologist in 1 week. Follow-up with PCP as scheduled. > 30 minutes of total time was spent on counseling and coordination of care for this patient's discharge.
[2018-03-30] MEDS: METOPROLOL TARTRATE 25 MG TAB PO SCH (09:46)
--- NOTE | 2018-03-30 09:58 | PDIAF ---
- Diagnosis Diagnosis: Diarrhea, Chemotherapy side effect, Dehydration, St IV colon CA Code Status: Full Code - Medication Management Discharge Medications: electronically signed and located in the Home Medication List. - Orders Diet Recommendation: no restrictions on diet Diet Texture: Regular Texture Diet Additional Instructions: Recommend you drink 3-4 L (about 6-8 pint glasses) of of water daily while you have diarrhea. You can drop flavored electrolyte tablets or hydration powder in the water to make the water more palatable. Recheck your labs on Monday through [facility]. Recommend you come to [facility] for IV normal saline infusions next week () -- our case filler will coordinate with your nurse navigator and provider at [facility]. - Labs/Radiology BMP Date: 04/02/18 (at [facility]) Other Lab Name, Date and Time: magnesium - at [facility] on 04/02/18 - Follow Up Care Current Providers and Referrals: Calderon Bridges MD [Medical Doctor] - follow up in 1 week Regino Mazariegos MD [Primary Care Provider] - follow up as scheduled
--- NOTE | 2018-03-30 10:04 | ASMTDCNOTE ---
Case Management Discharge Discharge Order Complete? Answers: Yes Patient to Obtain Answers: Independently Medications Transportation Arranged Answers: Other Notes: Self Faxed Final Orders Answers: Yes Agency/Facility Transfer Answers: Yes Report Printed & Faxed to Receiving Agency Discharge Comments Notes: CM discussed with pt, RN, and MD. Pt is being discharged home with [facility] and will follow-up with [facility]. CM sent discharge orders and discussed plan with pt. No other CM needs identified. Pt to transport self home. Date Signed: 03/30/2018 10:03 AM Electronically Signed By:VALENTE Huitron
--- NOTE | 2018-03-30 10:55 | ASMTLACE ---
LACE Length of stay for Answers: 1 day current admission Comorbidities - select Answers: Any tumor (including all that apply lymphoma or leukemia) Coronary Artery Disease Mild liver or renal disease # of Emergency department Answers: 3-4 visits in the last 6 months Score: 10 Date Signed: 03/30/2018 10:54 AM Electronically Signed By:VALENTE Huitron
--- NOTE | 2018-03-30 11:02 | ASDISCHSUM ---
Discharge Information Plan Status:Outpatient Palliative Care Medically Cleared to Leave: Discharge Date: D/C Disposition:Home, Routine, Self-Care ADT D/C Disposition:Home, Routine, Self-Care Projected Discharge Date:03/30/2018 12:00 AM Transportation at D/C:Self Discharge Delay Reason: Follow-Up Date:03/30/2018 12:00 AM Discharge Slot: Final Diagnosis: Placement Information Referral Type:Palliative Care Referral ID:[id number] Provider Name:[facility] Address 1:[address] Phone Number: Address 2: Fax Number: City:[place] Selection Factors: State:[place] Patient Contact Information Contact Name:VERNA Relationship:Daughter Address: Home Phone: City: [facility] Phone: [facility] Code: Email: Financial Information Financial Class:Medicaid Primary Plan Desc:[employer] Primary Plan Number:[id number] Secondary Plan Desc: Secondary Plan Number: Assessment Information LACE LACE Length of stay for Answers: 1 day current admission Comorbidities - select Answers: Any tumor (including all that apply lymphoma or leukemia) Coronary Artery Disease Mild liver or renal disease # of Emergency department Answers: 3-4 visits in the last 6 months Score: 10 Date Signed: 03/30/2018 10:54 AM Electronically Signed By:VALENTE Huitron [facility] CM Progress Note CM Note CM Note Notes: Patient chart reviewed. Hx of metastatic colon cancer. Admitted with diarrhea, dehydration and SAMUEL. He reports a 14 lb weight loss. Followed by [facility]. CM to follow for needs. Plan: TBD Date Signed: 03/27/2018 03:15 PM Electronically Signed By:Marisabel Martino RN [facility] CM Progress Note CM Note CM Note Notes: Patient plan of care reviewed in am rounds. 62 year old male with known colon cancer admitted with Nausea and diarrhea resulting in dehydration. He is anxious to leave as he wants to join family members to celebrate the holiday. He is current with [facility] palliative care. No other needs identified at this time. Plan: Dc to home when medically stable for discharge. Date Signed: 03/28/2018 12:28 PM Electronically Signed By:Marisabel Martino RN Case Management Discharge Plan Note Case Management Discharge Discharge Order Complete? Answers: Yes Patient to Obtain Answers: Independently Medications Transportation Arranged Answers: Other Notes: Self Faxed Final Orders Answers: Yes Agency/Facility Transfer Answers: Yes Report Printed & Faxed to Receiving Agency Discharge Comments Notes: CM discussed with pt, RN, and MD. Pt is being discharged home with [facility] and will follow-up with [facility]. CM sent discharge orders and discussed plan with pt. No other CM needs identified. Pt to transport self home. Date Signed: 03/30/2018 10:03 AM Electronically Signed By:VALENTE Huitron Intervention Information
== END 2018-03-30 11:30 | disposition home or self-care (01) | DRG 469 ==
LOC: F1N 14:32 → OBSVTOIN 03-29 09:42
PROVIDERS: ADMIT Internal Medicine; ATTEND Internal Medicine
DX: N17.9 Acute kidney failure, unspecified (principal); E87.1 Hypo-osmolality and hyponatremia; K52.1 Toxic gastroenteritis and colitis; T45.1X5A Adverse effect of antineoplastic and immunosuppressive drugs, initial encounter; I12.9 Hypertensive chronic kidney disease with stage 1 through stage 4 chronic kidney disease, or unspecified chronic kidney disease; N18.9 Chronic kidney disease, unspecified; C18.9 Malignant neoplasm of colon, unspecified; C78.7 Secondary malignant neoplasm of liver and intrahepatic bile duct; I83.009 Varicose veins of unspecified lower extremity with ulcer of unspecified site; K21.9 Gastro-esophageal reflux disease without esophagitis
CPT/HCPCS: 97161-GP; G0378; J1630; J1644; J3475